=== PATIENT | female | born 1990 | race Caucasian/White ===

== ENCOUNTER 2016-07-19 20:10 | Emergency (ER) | payer OTHER ==
[~2016-07-19 20:10] MED LIST: MOTR200T44 PO; NORCOTAB PO
[2016-07-19] MEDS ORDERED: KETOROLAC 30 MG/ML VIAL (J1885) As Ordered ONE (23:03)
[2016-07-19 23:26] LABS: BASO # 0.1 K/mm3 (0.0-0.2); BASO % 0.9 % (0.0-1.0); EOS # 0.1 K/mm3 (0.0-0.50); EOS % 1.2 % (0.0-3.0); LARGE UNSTAINED CELL # 0.2 K/mm3 (0.0-0.4); LARGE UNSTAINED CELL % 1.7 % (0.0-4.0); LYMPH # 2.5 K/mm3 (1.5-6.5); LYMPH % 26.5 % (24.0-44.0); MEAN CORPUSCULAR HEMOGLOBIN 29.9 pg (27.0-33.0); MEAN CORPUSCULAR HGB CONC 34.1 g/dl (32.0-36.5); MEAN CORPUSCULAR VOLUME 87.6 fl (80.0-96.0); MONO # 0.5 K/mm3 (0.0-0.8); MONO % 5.6 % (0.0-5.0); NEUTROPHILS # 5.6 K/mm3 (1.8-7.7); NEUTROPHILS % 64.1 % (36.0-66.0); PLATELET COUNT, AUTOMATED 228 k/mm3 (150-450); RED CELL DISTRIBUTION WIDTH 12.4 % (11.5-14.5); WHITE BLOOD COUNT 8.7 K/mm3 (4.0-10.0)
[2016-07-19 23:49] LABS: CONTROL LINE HCG INT CTR LINE PRESENT
[2016-07-19 23:53] LABS: ALBUMIN 4.1 GM/DL (3.2-5.2); ALBUMIN/GLOBULIN RATIO 1.28 (1.00-1.93); ALKALINE PHOSPHATASE 48 U/L (45-117); ALT/SGPT 17 U/L (12-78); ANION GAP 8 MEQ/L (8-16); AST/SGOT 14 U/L (15-37); BILIRUBIN,DIRECT 0.3 MG/DL (0.0-0.2); BILIRUBIN,TOTAL 1.6 MG/DL (0.2-1.0); BLOOD UREA NITROGEN 23 MG/DL (7-18); CALCIUM LEVEL 8.6 MG/DL (8.5-10.1); CARBON DIOXIDE LEVEL 28 MEQ/L (21-32); CHLORIDE LEVEL 106 MEQ/L (98-107); GLOMERULAR FILTRATION RATE > 60.0 (>60); GLUCOSE, FASTING 107 MG/DL (70-105); POTASSIUM SERUM 3.6 MEQ/L (3.5-5.1); SODIUM LEVEL 142 MEQ/L (136-145); TOTAL PROTEIN 7.3 GM/DL (6.4-8.2)
--- NOTE | 2016-07-20 | REPUSA ---
Clinical history: Pain. Findings: Real-time transabdominal ultrasound images of the pelvis were obtained. An anteverted uteru s is noted, measuring 10.4 x 3.9 x 5.9 cm. The uterus demonstrates normal echotexture and echogenicit y. The endometrial stripe measures 3 mm and is within normal limits. The right ovary measures 3.8 x 2 .0 x 3.1 cm. The left ovary measures 3.0 x 1.9 x 3.1 cm. No adnexal masses are seen. Color Doppler fl ow is seen within both ovaries. There is no evidence of free fluid. Impression: Unremarkable ultrasound examination of the pelvis.
[2016-07-20 00:11] LABS: HCG, SERUM QUANTITATIVE 79 MIU/ML
--- NOTE | 2016-07-20 00:39 | EDDOCDS ---
Physician Documentation [facility] Name: Fiona Spangler Age: 26 yrs Sex: Female : 1990 Arrival Date: 07/19/2016 Time: 20:10 Bed I6 Private MD: Unknown, Family Disposition: 07/20/16 00:26 Discharged to Home/Self Care. Impression: related conditions, unspecified, Pelvic and perineal pain. - Condition is Stable. - Discharge Instructions: First Trimester of , Pelvic Pain, Female. - Medication Reconciliation, Local Pharmacy Hours form. - Follow up: Loretta Rose CNM; When: Call to arrange an appointment; Reason: Recheck today's complaints, Continuance of care. Follow up: Maximo Aguilar MD; When: Call to arrange an appointment; Reason: Recheck today's complaints, Continuance of care. - Problem is new. - Symptoms are unchanged. - Notes: HCG on 07/19/16 was 78. follow up with [facility] on tuesday for repeat Beta HCG level. return to ER sooner if any concerns arise Historical: - Allergies: no known allergies; - Home Meds: 1. none - PMHx: none; - PSHx: ; - Social history: Smoking status: Patient states was never smoker of tobacco. No barriers to communication noted, The patient speaks fluent Thai, Speaks appropriately for age. - Family history: Not pertinent. - : The pt / caregiver states he / she is not on anticoagulants. Home medication list is obtained from the patient. - Exposure Risk Screening:: None identified. [facility]: 07/19 20:16 LMP 06/07/2016, states home test negative pml Vital Signs: 20:12 BP 139 / 79; Pulse 76; Resp 18; Temp 98.7; Pulse Ox 100% ; Weight 72.57 kg / 159.99 jlm lbs; Height 5 ft. 6 in. (167.64 cm); Pain 10/10; 20:12 Body Mass Index 25.82 (72.57 kg, 167.64 cm) jlm MDM: 23:01 ketorolac 60 mg IM once ordered. mo1 23:02 -US Pelvic Non-Ob Complete Ordered. EDMS 23:02 DUPLEX SCAN LIMITED (DOPPLER)+US Ordered. EDMS 23:02 Basic Metabolic Profile Ordered. EDMS 23:02 CBC with Diff Ordered. EDMS 23:02 HCG,Serum Qualitative Ordered. EDMS 23:02 Lipase Ordered. EDMS 23:02 Liver Profile Ordered. EDMS 23:02 Urinalysis Ordered. EDMS 23:02 Urine Culture Ordered. EDMS 23:14 Financial registration complete. pm4 23:14 [facility] Payment Agreement was scanned into [employer] and attached to record. pm4 23:33 CBC with Diff Reviewed. mo1 23:52 HCG,Serum Qualitative Reviewed. mo1 23:53 Urinalysis Reviewed. mo1 23:56 Basic Metabolic Profile Reviewed. mo1 23:57 Liver Profile Reviewed. mo1 23:57 Lipase Reviewed. mo1 07/20 00:08 -US Pelvic Non-Ob Complete Reviewed. mo1 00:15 HCG, SERUM QUANTITATIVE Reviewed. mo1 00:19 Basic Metabolic Profile Reviewed. mo1 00:19 Liver Profile Reviewed. mo1 00:19 Lipase Reviewed. mo1 00:19 HCG,Serum Qualitative Reviewed. mo1 00:23 Type & Screen Ordered. EDMS Administered Medications: 07/19 23:06 Drug: ketorolac 60 mg [ketorolac 30 mg/mL (1 mL) injection solution (2 mL)] Route: IM; ms18 Site: left gluteus; 07/20 00:38 Follow up: Response: Pain is decreased cp1 Signatures: Dispatcher [employer] EDMS Heaven Julio LPN LPN cp1 Aiyana FarrisRN RN pml Tom Jansen PA PA mo1 Delfin Parks, Reg Reg pm4 Fara Spangler RN ms18 The chart was reviewed and I authenticate all verbal orders and agree with the evaluation and treatment provided.Corrections: (The following items were deleted from the chart) 07/19 23:58 23:53 HCG, SERUM QUANTITATIVE+LAB ordered. EDMS EDMS Attachments: 23:14 [facility] Payment Agreement pm4 MTDD
--- NOTE | 2016-07-20 00:39 | EDDOCDS ---
Nurse's Notes [facility] Name: Fiona Spangler Age: 26 yrs Sex: Female : 1990 Arrival Date: 07/19/2016 Time: 20:10 Bed I6 / 28 Private MD: Unknown, Family Dr Diagnosis: related conditions, unspecified;Pelvic and perineal pain Presentation: 07/19 20:15 Presenting complaint: Patient states: low back and abdominal pain - ongoing since 0900 pml this AM - no relief with advil. denies dysuria, hematuria or injury. Acute neurological deficits are not present. Mechanism of Injury: No Mechanism of Injury. Adult Sepsis Screening: The patient does not have new or worsening altered mentation. Patient's respiratory rate is less than 22. Systolic blood pressure is greater than 100. Patient has a qSOFA score of 0- Negative Sepsis Screen. Suicide/Homicide risk assessment- the patient denies having any suicidal and/or homicidal ideations and does not present with any other emotional, behavioral or mental health complaints. Status: Patient is not a guest services associate or dependent. Transition of care: patient was not received from another setting of care. 20:15 Acuity: JAMAL Level 3 pml 20:15 Method Of Arrival: Walkin/Carried/Asstd pml Triage Assessment: 20:16 General: Appears in no apparent distress, comfortable. Pain: Location: right low back pml and right lower quadrant Pain currently is 10 out of 10 on a pain scale. HIV screening NA for this visit Offered previously. Musculoskeletal: Circulation, motion, and sensation intact Capillary refill < 3 seconds. [employer] ARC: 20:16 LMP 06/07/2016, states home test negative pml Historical: - Allergies: no known allergies; - Home Meds: 1. none - PMHx: none; - PSHx: ; - Social history: Smoking status: Patient states was never smoker of tobacco. No barriers to communication noted, The patient speaks fluent Andorran, Speaks appropriately for age. - Family history: Not pertinent. - : The pt / caregiver states he / she is not on anticoagulants. Home medication list is obtained from the patient. - Exposure Risk Screening:: None identified. Screenin/17 00:36 Screening information is obtained from the patient. Fall risk: No risks identified. cp1 Assistance ADL's: requires no assistance with activities of daily living. Abuse/DV Screen: The patient / caregiver reports he/she is: not in a situation that causes fear, pain or injury. Nutritional screening: No deficits noted. Advance Directives: Currently, there is no health care proxy. There is no active DNR order. home support is adequate. Vital Signs: 07/19 20:12 BP 139 / 79; Pulse 76; Resp 18; Temp 98.7; Pulse Ox 100% ; Weight 72.57 kg; Height 5 [facility] ft. 6 in. (167.64 cm); Pain 10/10; 20:12 Body Mass Index 25.82 (72.57 kg, 167.64 cm) [facility] Vitals: 20:12 Log In Time: July 19, 2016 at 20:12. [facility] ED Course: 20:11 Patient visited by Sophy Wen, Wheat Shipper. jlm 20:11 Patient moved to Waiting jl 20:12 Unknown, Family Dr is Private Physician. jlm 20:14 Patient visited by Sophy Wen, Wheat Shipper. jlm 20:14 Patient moved to Pre RCE jlm 20:16 Triage Initiated pml 20:17 Patient visited by Aiyana Farris,JAMI. pml 22:23 Patient moved to Triage 2 pml 22:34 Tom Jansen PA is PHCP. mo1 22:34 Bright Guevara DO is Attending Physician. mo1 22:55 Patient visited by Tom Jansen PA. mo1 23:14 [facility] Payment Agreement was scanned into [employer] and attached to record. pm4 23:15 Basic Metabolic Profile Sent. ms18 23:15 CBC with Diff Sent. ms18 23:15 HCG,Serum Qualitative Sent. ms18 23:15 Lipase Sent. ms18 23:15 Liver Profile Sent. ms18 23:15 Urinalysis Sent. ms18 23:15 Urine Culture Sent. ms18 23:17 Patient moved to TR4 cz 23:25 Patient moved to Ultrasound dmg 23:42 Patient moved to TR4 dmg 07/20 00:03 -US Pelvic Non-Ob Complete Returned. EDMS 00:04 Patient visited by Heaven Julio LPN. cp1 00:04 Patient moved to I mo1 00:26 Loretta Rose CNM is Referral Physician. mo1 00:26 Maximo Aguilar MD is Referral Physician. mo1 00:35 Type & Screen Sent. cp1 00:36 The patient / caregiver is instructed regarding the plan of care and ED course. cp1 00:36 No IV's were initiated during this patient's visit. No procedures done that require cp1 assistance. Administered Medications: 07/19 23:06 Drug: ketorolac 60 mg [ketorolac 30 mg/mL (1 mL) injection solution (2 mL)] Route: IM; ms18 Site: left gluteus; 07/20 00:38 Follow up: Response: Pain is decreased cp1 Order Results: Lab Order: Basic Metabolic Profile; SPEC'M 07/19/16 23:09 Test: GLUCOSE, FASTING; Value: 107; Range: 70-105; Abnormal: Above high normal; Units: MG/DL; Status: F Test: BLOOD UREA NITROGEN; Value: 23; Range: 7-18; Abnormal: Above high normal; Units: MG/DL; Status: F Test: CREATININE FOR GFR; Value: 0.60; Range: 0.55-1.02; Units: MG/DL; Status: F Test: SODIUM LEVEL; Range: 136-145; Units: MEQ/L; Status: I Test: POTASSIUM SERUM; Range: 3.5-5.1; Units: MEQ/L; Status: I Test: CHLORIDE LEVEL; Range: 98-107; Units: MEQ/L; Status: I Test: CARBON DIOXIDE LEVEL; Range: 21-32; Units: MEQ/L; Status: I Test: ANION GAP; Range: 8-16; Units: MEQ/L; Status: I Test: CALCIUM LEVEL; Range: 8.5-10.1; Units: MG/DL; Status: I Test: GLOMERULAR FILTRATION RATE; Value: > 60.0; Range: >60; Status: F Test: SODIUM LEVEL; Value: 142; Range: 136-145; Units: MEQ/L; Status: F Test: POTASSIUM SERUM; Value: 3.6; Range: 3.5-5.1; Units: MEQ/L; Status: F Test: CHLORIDE LEVEL; Value: 106; Range: 98-107; Units: MEQ/L; Status: F Test: CARBON DIOXIDE LEVEL; Value: 28; Range: 21-32; Units: MEQ/L; Status: F Test: ANION GAP; Value: 8; Range: 8-16; Units: MEQ/L; Status: F Test: CALCIUM LEVEL; Value: 8.6; Range: 8.5-10.1; Units: MG/DL; Status: F Test Note: ; Units are mL/min/1.73 m2 Chronic Kidney Disease Staging per NKF: Stage I & II GFR >=60 Normal to Mildly Decreased Stage III GFR 30-59 Moderately Decreased Stage IV GFR 15-29 Severely Decreased Stage V GFR <15 Very Little GFR Left ESRD GFR <15 on BOOK MENDER Lab Order: CBC with Diff; SPEC'M 07/19/16 23:09 Test: WHITE BLOOD COUNT; Value: 8.7; Range: 4.0-10.0; Units: K/mm3; Status: F Test: RED BLOOD COUNT; Value: 4.38; Range: 4.00-5.40; Units: M/mm3; Status: F Test: HEMOGLOBIN; Value: 13.1; Range: 12.0-16.0; Units: g/dl; Status: F Test: HEMATOCRIT; Value: 38.4; Range: 36.0-47.0; Units: %; Status: F Test: MEAN CORPUSCULAR VOLUME; Value: 87.6; Range: 80.0-96.0; Units: fl; Status: F Test: MEAN CORPUSCULAR HEMOGLOBIN; Value: 29.9; Range: 27.0-33.0; Units: pg; Status: F Test: MEAN CORPUSCULAR HGB CONC; Value: 34.1; Range: 32.0-36.5; Units: g/dl; Status: F Test: RED CELL DISTRIBUTION WIDTH; Value: 12.4; Range: 11.5-14.5; Units: %; Status: F Test: PLATELET COUNT, AUTOMATED; Value: 228; Range: 150-450; Units: k/mm3; Status: F Test: NEUTROPHILS %; Value: 64.1; Range: 36.0-66.0; Units: %; Status: F Test: LYMPH %; Value: 26.5; Range: 24.0-44.0; Units: %; Status: F Test: MONO %; Value: 5.6; Range: 0.0-5.0; Abnormal: Above high normal; Units: %; Status: F Test: EOS %; Value: 1.2; Range: 0.0-3.0; Units: %; Status: F Test: BASO %; Value: 0.9; Range: 0.0-1.0; Units: %; Status: F Test: LARGE UNSTAINED CELL %; Value: 1.7; Range: 0.0-4.0; Units: %; Status: F Test: NEUTROPHILS #; Value: 5.6; Range: 1.8-7.7; Units: K/mm3; Status: F Test: LYMPH #; Value: 2.5; Range: 1.5-6.5; Units: K/mm3; Status: F Test: MONO #; Value: 0.5; Range: 0.0-0.8; Units: K/mm3; Status: F Test: EOS #; Value: 0.1; Range: 0.0-0.50; Units: K/mm3; Status: F Test: BASO #; Value: 0.1; Range: 0.0-0.2; Units: K/mm3; Status: F Test: LARGE UNSTAINED CELL #; Value: 0.2; Range: 0.0-0.4; Units: K/mm3; Status: F Lab Order: HCG,Serum Qualitative; [facility] 07/19/16 23:09 Test: HCG, SERUM QUALITATIVE; Value: POSITIVE; Range: NEGATIVE; Abnormal: Abnormal; Status: F Lab Order: Lipase; [facility] 07/19/16 23:09 Test: LIPASE; Value: 86; Range: 73-393; Units: U/L; Status: F Lab Order: Liver Profile; [facility] 07/19/16 23:09 Test: AST/SGOT; Value: 14; Range: 15-37; Abnormal: Below low normal; Units: U/L; Status: F Test: ALT/SGPT; Value: 17; Range: 12-78; Units: U/L; Status: F Test: ALKALINE PHOSPHATASE; Value: 48; Range: 45-117; Units: U/L; Status: F Test: BILIRUBIN,TOTAL; Value: 1.6; Range: 0.2-1.0; Abnormal: Above high normal; Units: MG/DL; Status: F Test: BILIRUBIN,DIRECT; Value: 0.3; Range: 0.0-0.2; Abnormal: Above high normal; Units: MG/DL; Status: F Test: TOTAL PROTEIN; Value: 7.3; Range: 6.4-8.2; Units: GM/DL; Status: F Test: ALBUMIN; Value: 4.1; Range: 3.2-5.2; Units: GM/DL; Status: F Test: ALBUMIN/GLOBULIN RATIO; Value: 1.28; Range: 1.00-1.93; Status: F Lab Order: Urinalysis; SPEC'M 07/19/16 23:09 Test: APPEARANCE, URINE; Value: HAZY; Range: CLEAR; Status: F Test: COLOR, URINE; Value: YELLOW; Range: YELLOW; Status: F Test: PH,URINE; Value: 5.0; Range: 5.0-9.0; Units: UNITS; Status: F Test: SPECIFIC GRAVITY URINE AUTO; Value: 1.035; Range: 1.002-1.035; Status: F Test: PROTEIN, URINE AUTO; Value: 1+; Range: NEGATIVE; Abnormal: Above high normal; Units: mg/dL; Status: F Test: GLUCOSE, URINE (UA) AUTO; Value: NEGATIVE; Range: NEGATIVE; Units: mg/dL; Status: F Test: KETONE, URINE AUTO; Value: TRACE; Range: NEGATIVE; Abnormal: Above high normal; Units: mg/dL; Status: F Test: UROBILINOGEN, URINE AUTO; Value: 0.2; Range: 0.0-2.0; Units: mg/dL; Status: F Test: BILIRUBIN, URINE AUTO; Value: NEGATIVE; Range: NEGATIVE; Status: F Test: NITRITE, URINE AUTO; Value: NEGATIVE; Range: NEGATIVE; Status: F Test: LEUKOCYTE ESTERASE, URINE AUTO; Value: NEGATIVE; Range: NEGATIVE; Status: F Test: BLOOD, URINE BLOOD; Value: NEGATIVE; Range: NEGATIVE; Status: F Test: WBC, URINE AUTO; Value: 1; Range: 0-3; Units: /HPF; Status: F Test: RBC, URINE AUTO; Value: 5; Range: 0-3; Abnormal: Above high normal; Units: /HPF; Status: F Test: BACTERIA, URINE AUTO; Value: NEGATIVE; Range: NEGATIVE; Status: F Test: SQUAMOUS EPITHELIAL CELL UR AU; Value: 4; Range: 0-6; Units: /HPF; Status: F Test: MUCUS, URINE; Value: LARGE; Range: NEGATIVE; Status: F Test: HYALINE CAST, URINE AUTO; Value: 0; Range: 0-1; Units: /LPF; Status: F Lab Order: HCG, SERUM QUANTITATIVE; SPEC'M 07/19/16 23:09 Test: HCG, SERUM QUANTITATIVE; Value: 79; Units: MIU/ML; Status: F Test Note: ; GESTATIONAL AGE APPROXIMATE HCG RANGE (MIU/ML) 0.2-1 WEEK 5-50 1-2 WEEKS 50-500 2-3 WEEKS 100-5,000 3-4 WEEKS 500-10,000 4-5 WEEKS 1,000-50,000 5-6 WEEKS 10,000-100,000 6-8 WEEKS 15,000-200,000 2-3 MONTHS 10,000-100,000 NON FEMALES LESS THAN 3.0 Patient samples may contain human heterophilic antibodies that could react with immunoassays to give falsely elevated or depressed results. This assay has been designed to minimize interference from heterophilic antibodies. Elevated hCG levels have also been associated with trophoblastic disease and nontrophoblastic neoplasms. The possibility of having these diseases should be considered before a diagnosis of is made. This test is not intended for use as a surrogate marker for aiding in the diagnosis or monitoring the treatment of cancer patients. [employer] methodology. Radiology Order: -US Pelvic Non-Ob Complete Test: -US Pelvic Non-Ob Complete REASON FOR EXAMINATION: Adnexal Pain r/o Torsion; ; Clinical history: Pain.; Findings: Real-time transabdominal ultrasound images of the pelvis were obtained. An anteverted uteru; s is noted, measuring 10.4 x 3.9 x 5.9 cm. The uterus demonstrates normal echotexture and echogenicit; y. The endometrial stripe measures 3 mm and is within normal limits. The right ovary measures 3.8 x 2; .0 x 3.1 cm. The left ovary measures 3.0 x 1.9 x 3.1 cm. No adnexal masses are seen. Color Doppler fl; ow is seen within both ovaries. There is no evidence of free fluid.; Impression: Unremarkable ultrasound examination of the pelvis.; ; Outcome: 00:26 Discharge ordered by Provider. mo1 00:36 Discharge Assessment: Patient awake, alert and oriented x 3. No cognitive and/or cp1 functional deficits noted. Patient verbalized understanding of disposition instructions. patient administered narcotics - no. The following High Risk Discharge criteria are identified: None. Discharged to home ambulatory. Condition: good Condition: stable. Discharge instructions given to patient, Instructed on discharge instructions, follow up and referral plans. medication usage, Demonstrated understanding of instructions, Pt was receptive of discharge instructions/ teaching. Ultrasound Study completed. Property sent home with patient. :Personal belongings accompany Pt. 00:38 Patient left the ED. cp1 Signatures: Dispatcher [employer] EDMS Paulo Rosas, Belen Lopez RN, Cheryl, LPN LPN cp1 Aiyana Farris RN RN pml O'Hagan, Michael, PA PA mo1 Sophy Wen, Wheat Shipper Unit Fara Simms RN RN ms18 Delfin Parks, Reg Reg pm4 MTDD
--- NOTE | 2016-07-22 01:39 | EDDOCDS ---
Physician Documentation [facility] Name: Fiona Spangler Age: 26 yrs Sex: Female : 1990 Arrival Date: 07/19/2016 Time: 20:10 Bed I6 Private MD: Unknown, Family Disposition: 07/20/16 00:26 Discharged to Home/Self Care. Impression: related conditions, unspecified, Pelvic and perineal pain. - Condition is Stable. - Discharge Instructions: First Trimester of , Pelvic Pain, Female. - Medication Reconciliation, Local Pharmacy Hours form. - Follow up: Loertta Rose CNM; When: Call to arrange an appointment; Reason: Recheck today's complaints, Continuance of care. Follow up: Maximo Aguilar MD; When: Call to arrange an appointment; Reason: Recheck today's complaints, Continuance of care. - Problem is new. - Symptoms are unchanged. - Notes: HCG on 07/19/16 was 78. follow up with REGISTERED HEALTH NURSE on tuesday for repeat Beta HCG level. return to ER sooner if any concerns arise Historical: - Allergies: no known allergies; - Home Meds: 1. none - PMHx: none; - PSHx: ; - Social history: Smoking status: Patient states was never smoker of tobacco. No barriers to communication noted, The patient speaks fluent Tajik, Speaks appropriately for age. - Family history: Not pertinent. - : The pt / caregiver states he / she is not on anticoagulants. Home medication list is obtained from the patient. - Exposure Risk Screening:: None identified. REGISTERED HEALTH NURSE: 07/19 20:16 LMP 06/07/2016, states home test negative pml Vital Signs: 20:12 BP 139 / 79; Pulse 76; Resp 18; Temp 98.7; Pulse Ox 100% ; Weight 72.57 kg / 159.99 jlm lbs; Height 5 ft. 6 in. (167.64 cm); Pain 10/10; 20:12 Body Mass Index 25.82 (72.57 kg, 167.64 cm) jlm MDM: 23:01 ketorolac 60 mg IM once ordered. mo1 23:02 -US Pelvic Non-Ob Complete Ordered. EDMS 23:02 DUPLEX SCAN LIMITED (DOPPLER)+US Ordered. EDMS 23:02 Basic Metabolic Profile Ordered. EDMS 23:02 CBC with Diff Ordered. EDMS 23:02 HCG,Serum Qualitative Ordered. EDMS 23:02 Lipase Ordered. EDMS 23:02 Liver Profile Ordered. EDMS 23:02 Urinalysis Ordered. EDMS 23:02 Urine Culture Ordered. EDMS 23:14 Financial registration complete. pm4 23:14 [facility] Payment Agreement was scanned into [employer] and attached to record. pm4 23:33 CBC with Diff Reviewed. mo1 23:52 HCG,Serum Qualitative Reviewed. mo1 23:53 Urinalysis Reviewed. mo1 23:56 Basic Metabolic Profile Reviewed. mo1 23:57 Liver Profile Reviewed. mo1 23:57 Lipase Reviewed. mo1 07/20 00:08 -US Pelvic Non-Ob Complete Reviewed. mo1 00:15 HCG, SERUM QUANTITATIVE Reviewed. mo1 00:19 Basic Metabolic Profile Reviewed. mo1 00:19 Liver Profile Reviewed. mo1 00:19 Lipase Reviewed. mo1 00:19 HCG,Serum Qualitative Reviewed. mo1 00:23 Type & Screen Ordered. EDMS 11:07 T-Sheet-- Draft Copy was scanned into [employer] and attached to record. gb 11:07 Radiology Report was scanned into [employer] and attached to record. gb Administered Medications: 07/19 23:06 Drug: ketorolac 60 mg [ketorolac 30 mg/mL (1 mL) injection solution (2 mL)] Route: IM; ms18 Site: left gluteus; 07/20 00:38 Follow up: Response: Pain is decreased cp1 Signatures: Dispatcher [employer] EDMS Divine Tse, Reg Reg gb Heaven Julio,TELLER HEAD TELLER HEAD cp1 Aiyana Farris,RN RN pml Tom Jansen PA PA mo1 Delfin Parks, Reg Reg pm4 Fara Spangler RN ms18 The chart was reviewed and I authenticate all verbal orders and agree with the evaluation and treatment provided.Corrections: (The following items were deleted from the chart) 07/19 23:58 23:53 HCG, SERUM QUANTITATIVE+LAB ordered. EDMS EDMS Attachments: 23:14 [facility] Payment Agreement pm4 07/20 11:07 T-Sheet-- Draft Copy gb Chart Complete MTDD
--- NOTE | 2016-07-22 01:39 | EDDOCDS ---
Nurse's Notes [facility] Name: Fiona Spangler Age: 26 yrs Sex: Female : 1990 Arrival Date: 07/19/2016 Time: 20:10 Bed I6 / 28 Private MD: Unknown, Family Dr Diagnosis: related conditions, unspecified;Pelvic and perineal pain Presentation: 07/19 20:15 Presenting complaint: Patient states: low back and abdominal pain - ongoing since 0900 pml this AM - no relief with advil. denies dysuria, hematuria or injury. Acute neurological deficits are not present. Mechanism of Injury: No Mechanism of Injury. Adult Sepsis Screening: The patient does not have new or worsening altered mentation. Patient's respiratory rate is less than 22. Systolic blood pressure is greater than 100. Patient has a qSOFA score of 0- Negative Sepsis Screen. Suicide/Homicide risk assessment- the patient denies having any suicidal and/or homicidal ideations and does not present with any other emotional, behavioral or mental health complaints. Status: Patient is not a agricultural service worker or dependent. Transition of care: patient was not received from another setting of care. 20:15 Acuity: JAMAL Level 3 pml 20:15 Method Of Arrival: Walkin/Carried/Asstd pml Triage Assessment: 20:16 General: Appears in no apparent distress, comfortable. Pain: Location: right low back pml and right lower quadrant Pain currently is 10 out of 10 on a pain scale. HIV screening NA for this visit Offered previously. Musculoskeletal: Circulation, motion, and sensation intact Capillary refill < 3 seconds. PATTERN MAKER: 20:16 LMP 06/07/2016, states home test negative pml Historical: - Allergies: no known allergies; - Home Meds: 1. none - PMHx: none; - PSHx: ; - Social history: Smoking status: Patient states was never smoker of tobacco. No barriers to communication noted, The patient speaks fluent Iraqi, Speaks appropriately for age. - Family history: Not pertinent. - : The pt / caregiver states he / she is not on anticoagulants. Home medication list is obtained from the patient. - Exposure Risk Screening:: None identified. Screenin/17 00:36 Screening information is obtained from the patient. Fall risk: No risks identified. cp1 Assistance ADL's: requires no assistance with activities of daily living. Abuse/DV Screen: The patient / caregiver reports he/she is: not in a situation that causes fear, pain or injury. Nutritional screening: No deficits noted. Advance Directives: Currently, there is no health care proxy. There is no active DNR order. home support is adequate. Vital Signs: 07/19 20:12 BP 139 / 79; Pulse 76; Resp 18; Temp 98.7; Pulse Ox 100% ; Weight 72.57 kg; Height 5 [facility] ft. 6 in. (167.64 cm); Pain 10/10; 20:12 Body Mass Index 25.82 (72.57 kg, 167.64 cm) [facility] Vitals: 20:12 Log In Time: July 19, 2016 at 20:12. [facility] ED Course: 20:11 Patient visited by Sophy Wen, Clinical Trials Specialist. jlm 20:11 Patient moved to Waiting jl 20:12 Unknown, Family Dr is Private Physician. jlm 20:14 Patient visited by Sophy Wen, Clinical Trials Specialist. jlm 20:14 Patient moved to Pre RCE jlm 20:16 Triage Initiated pml 20:17 Patient visited by Aiyana Farris,JAMI. pml 22:23 Patient moved to Triage 2 pml 22:34 Tom Jansen PA is PHCP. mo1 22:34 Bright Guevara DO is Attending Physician. mo1 22:55 Patient visited by Tom Jansen PA. mo1 23:14 [facility] Payment Agreement was scanned into [employer] and attached to record. pm4 23:15 Basic Metabolic Profile Sent. ms18 23:15 CBC with Diff Sent. ms18 23:15 HCG,Serum Qualitative Sent. ms18 23:15 Lipase Sent. ms18 23:15 Liver Profile Sent. ms18 23:15 Urinalysis Sent. ms18 23:15 Urine Culture Sent. ms18 23:17 Patient moved to TR4 cz 23:25 Patient moved to Ultrasound dmg 23:42 Patient moved to TR4 dmg 07/20 00:03 -US Pelvic Non-Ob Complete Returned. EDMS 00:04 Patient visited by Heaven Julio LPN. cp1 00:04 Patient moved to I mo1 00:26 Loretta Rose CNM is Referral Physician. mo1 00:26 Maximo Aguilar MD is Referral Physician. mo1 00:35 Type & Screen Sent. cp1 00:36 The patient / caregiver is instructed regarding the plan of care and ED course. cp1 00:36 No IV's were initiated during this patient's visit. No procedures done that require cp1 assistance. 11:07 T-Sheet-- Draft Copy was scanned into [employer] and attached to record. gb 11:07 Radiology Report was scanned into [employer] and attached to record. gb Administered Medications: 07/19 23:06 Drug: ketorolac 60 mg [ketorolac 30 mg/mL (1 mL) injection solution (2 mL)] Route: IM; ms18 Site: left gluteus; 07/20 00:38 Follow up: Response: Pain is decreased cp1 Order Results: Lab Order: Basic Metabolic Profile; SPEC'M 07/19/16 23:09 Test: GLUCOSE, FASTING; Value: 107; Range: 70-105; Abnormal: Above high normal; Units: MG/DL; Status: F Test: BLOOD UREA NITROGEN; Value: 23; Range: 7-18; Abnormal: Above high normal; Units: MG/DL; Status: F Test: CREATININE FOR GFR; Value: 0.60; Range: 0.55-1.02; Units: MG/DL; Status: F Test: SODIUM LEVEL; Range: 136-145; Units: MEQ/L; Status: I Test: POTASSIUM SERUM; Range: 3.5-5.1; Units: MEQ/L; Status: I Test: CHLORIDE LEVEL; Range: 98-107; Units: MEQ/L; Status: I Test: CARBON DIOXIDE LEVEL; Range: 21-32; Units: MEQ/L; Status: I Test: ANION GAP; Range: 8-16; Units: MEQ/L; Status: I Test: CALCIUM LEVEL; Range: 8.5-10.1; Units: MG/DL; Status: I Test: GLOMERULAR FILTRATION RATE; Value: > 60.0; Range: >60; Status: F Test: SODIUM LEVEL; Value: 142; Range: 136-145; Units: MEQ/L; Status: F Test: POTASSIUM SERUM; Value: 3.6; Range: 3.5-5.1; Units: MEQ/L; Status: F Test: CHLORIDE LEVEL; Value: 106; Range: 98-107; Units: MEQ/L; Status: F Test: CARBON DIOXIDE LEVEL; Value: 28; Range: 21-32; Units: MEQ/L; Status: F Test: ANION GAP; Value: 8; Range: 8-16; Units: MEQ/L; Status: F Test: CALCIUM LEVEL; Value: 8.6; Range: 8.5-10.1; Units: MG/DL; Status: F Test Note: ; Units are mL/min/1.73 m2 Chronic Kidney Disease Staging per NKF: Stage I & II GFR >=60 Normal to Mildly Decreased Stage III GFR 30-59 Moderately Decreased Stage IV GFR 15-29 Severely Decreased Stage V GFR <15 Very Little GFR Left ESRD GFR <15 on SWAGE TENDER Lab Order: CBC with Diff; SPEC'M 07/19/16 23:09 Test: WHITE BLOOD COUNT; Value: 8.7; Range: 4.0-10.0; Units: K/mm3; Status: F Test: RED BLOOD COUNT; Value: 4.38; Range: 4.00-5.40; Units: M/mm3; Status: F Test: HEMOGLOBIN; Value: 13.1; Range: 12.0-16.0; Units: g/dl; Status: F Test: HEMATOCRIT; Value: 38.4; Range: 36.0-47.0; Units: %; Status: F Test: MEAN CORPUSCULAR VOLUME; Value: 87.6; Range: 80.0-96.0; Units: fl; Status: F Test: MEAN CORPUSCULAR HEMOGLOBIN; Value: 29.9; Range: 27.0-33.0; Units: pg; Status: F Test: MEAN CORPUSCULAR HGB CONC; Value: 34.1; Range: 32.0-36.5; Units: g/dl; Status: F Test: RED CELL DISTRIBUTION WIDTH; Value: 12.4; Range: 11.5-14.5; Units: %; Status: F Test: PLATELET COUNT, AUTOMATED; Value: 228; Range: 150-450; Units: k/mm3; Status: F Test: NEUTROPHILS %; Value: 64.1; Range: 36.0-66.0; Units: %; Status: F Test: LYMPH %; Value: 26.5; Range: 24.0-44.0; Units: %; Status: F Test: MONO %; Value: 5.6; Range: 0.0-5.0; Abnormal: Above high normal; Units: %; Status: F Test: EOS %; Value: 1.2; Range: 0.0-3.0; Units: %; Status: F Test: BASO %; Value: 0.9; Range: 0.0-1.0; Units: %; Status: F Test: LARGE UNSTAINED CELL %; Value: 1.7; Range: 0.0-4.0; Units: %; Status: F Test: NEUTROPHILS #; Value: 5.6; Range: 1.8-7.7; Units: K/mm3; Status: F Test: LYMPH #; Value: 2.5; Range: 1.5-6.5; Units: K/mm3; Status: F Test: MONO #; Value: 0.5; Range: 0.0-0.8; Units: K/mm3; Status: F Test: EOS #; Value: 0.1; Range: 0.0-0.50; Units: K/mm3; Status: F Test: BASO #; Value: 0.1; Range: 0.0-0.2; Units: K/mm3; Status: F Test: LARGE UNSTAINED CELL #; Value: 0.2; Range: 0.0-0.4; Units: K/mm3; Status: F Lab Order: HCG,Serum Qualitative; SPEC' 07/19/16 23:09 Test: HCG, SERUM QUALITATIVE; Value: POSITIVE; Range: NEGATIVE; Abnormal: Abnormal; Status: F Lab Order: Lipase; SPEC'M 07/19/16 23:09 Test: LIPASE; Value: 86; Range: 73-393; Units: U/L; Status: F Lab Order: Liver Profile; SPEC' 07/19/16 23:09 Test: AST/SGOT; Value: 14; Range: 15-37; Abnormal: Below low normal; Units: U/L; Status: F Test: ALT/SGPT; Value: 17; Range: 12-78; Units: U/L; Status: F Test: ALKALINE PHOSPHATASE; Value: 48; Range: 45-117; Units: U/L; Status: F Test: BILIRUBIN,TOTAL; Value: 1.6; Range: 0.2-1.0; Abnormal: Above high normal; Units: MG/DL; Status: F Test: BILIRUBIN,DIRECT; Value: 0.3; Range: 0.0-0.2; Abnormal: Above high normal; Units: MG/DL; Status: F Test: TOTAL PROTEIN; Value: 7.3; Range: 6.4-8.2; Units: GM/DL; Status: F Test: ALBUMIN; Value: 4.1; Range: 3.2-5.2; Units: GM/DL; Status: F Test: ALBUMIN/GLOBULIN RATIO; Value: 1.28; Range: 1.00-1.93; Status: F Lab Order: Urinalysis; SPEC'M 07/19/16 23:09 Test: APPEARANCE, URINE; Value: HAZY; Range: CLEAR; Status: F Test: COLOR, URINE; Value: YELLOW; Range: YELLOW; Status: F Test: PH,URINE; Value: 5.0; Range: 5.0-9.0; Units: UNITS; Status: F Test: SPECIFIC GRAVITY URINE AUTO; Value: 1.035; Range: 1.002-1.035; Status: F Test: PROTEIN, URINE AUTO; Value: 1+; Range: NEGATIVE; Abnormal: Above high normal; Units: mg/dL; Status: F Test: GLUCOSE, URINE (UA) AUTO; Value: NEGATIVE; Range: NEGATIVE; Units: mg/dL; Status: F Test: KETONE, URINE AUTO; Value: TRACE; Range: NEGATIVE; Abnormal: Above high normal; Units: mg/dL; Status: F Test: UROBILINOGEN, URINE AUTO; Value: 0.2; Range: 0.0-2.0; Units: mg/dL; Status: F Test: BILIRUBIN, URINE AUTO; Value: NEGATIVE; Range: NEGATIVE; Status: F Test: NITRITE, URINE AUTO; Value: NEGATIVE; Range: NEGATIVE; Status: F Test: LEUKOCYTE ESTERASE, URINE AUTO; Value: NEGATIVE; Range: NEGATIVE; Status: F Test: BLOOD, URINE BLOOD; Value: NEGATIVE; Range: NEGATIVE; Status: F Test: WBC, URINE AUTO; Value: 1; Range: 0-3; Units: /HPF; Status: F Test: RBC, URINE AUTO; Value: 5; Range: 0-3; Abnormal: Above high normal; Units: /HPF; Status: F Test: BACTERIA, URINE AUTO; Value: NEGATIVE; Range: NEGATIVE; Status: F Test: SQUAMOUS EPITHELIAL CELL UR AU; Value: 4; Range: 0-6; Units: /HPF; Status: F Test: MUCUS, URINE; Value: LARGE; Range: NEGATIVE; Status: F Test: HYALINE CAST, URINE AUTO; Value: 0; Range: 0-1; Units: /LPF; Status: F Lab Order: Urine Culture; SPEC'07/19/16 23:09 Test: URINE CULTURE; Value: URINE CULTURE RESULT SPECIMEN APPEARS CONTAMINATED; Status: F Lab Order: HCG, SERUM QUANTITATIVE; 07/19/16 23:09 Test: HCG, SERUM QUANTITATIVE; Value: 79; Units: MIU/ML; Status: F Test Note: ; GESTATIONAL AGE APPROXIMATE HCG RANGE (MIU/ML) 0.2-1 WEEK 5-50 1-2 WEEKS 50-500 2-3 WEEKS 100-5,000 3-4 WEEKS 500-10,000 4-5 WEEKS 1,000-50,000 5-6 WEEKS 10,000-100,000 6-8 WEEKS 15,000-200,000 2-3 MONTHS 10,000-100,000 NON FEMALES LESS THAN 3.0 Patient samples may contain human heterophilic antibodies that could react with immunoassays to give falsely elevated or depressed results. This assay has been designed to minimize interference from heterophilic antibodies. Elevated hCG levels have also been associated with trophoblastic disease and nontrophoblastic neoplasms. The possibility of having these diseases should be considered before a diagnosis of is made. This test is not intended for use as a surrogate marker for aiding in the diagnosis or monitoring the treatment of cancer patients. [employer] methodology. Lab Order: Type & Screen; SPEC07/20/16 00:26 Test: BLOOD TYPE; Value: O NEG; Status: F Test: AB SCREEN (INDIRECT DEREK)GEL; Value: NEGATIVE; Status: F Radiology Order: -US Pelvic Non-Ob Complete Test: -US Pelvic Non-Ob Complete REASON FOR EXAMINATION: Adnexal Pain r/o Torsion; ; Clinical history: Pain.; Findings: Real-time transabdominal ultrasound images of the pelvis were obtained. An anteverted uteru; s is noted, measuring 10.4 x 3.9 x 5.9 cm. The uterus demonstrates normal echotexture and echogenicit; y. The endometrial stripe measures 3 mm and is within normal limits. The right ovary measures 3.8 x 2; .0 x 3.1 cm. The left ovary measures 3.0 x 1.9 x 3.1 cm. No adnexal masses are seen. Color Doppler fl; ow is seen within both ovaries. There is no evidence of free fluid.; Impression: Unremarkable ultrasound examination of the pelvis.; ; Outcome: 00:26 Discharge ordered by Provider. mo1 00:36 Discharge Assessment: Patient awake, alert and oriented x 3. No cognitive and/or cp1 functional deficits noted. Patient verbalized understanding of disposition instructions. patient administered narcotics - no. The following High Risk Discharge criteria are identified: None. Discharged to home ambulatory. Condition: good Condition: stable. Discharge instructions given to patient, Instructed on discharge instructions, follow up and referral plans. medication usage, Demonstrated understanding of instructions, Pt was receptive of discharge instructions/ teaching. Ultrasound Study completed. Property sent home with patient. :Personal belongings accompany Pt. 00:38 Patient left the ED. cp1 Signatures: Dispatcher [employer] EDMS Paulo Rosas RN RN cz Gunn, Deanne Divine Moss, Reg Reg gb Heaven Julio,SPEECH PATHOLOGY ASSISTANT SPEECH PATHOLOGY ASSISTANT cp1 Aiyana Farris RN RN pml O'Hagan, Michael, PA PA mo1 Sophy Wen, Clinical Trials Specialist Unit Fara Simms RN RN ms18 Delfin Parks, Reg Reg pm4 Chart Complete MTDD
--- NOTE | 2016-07-22 01:39 | EDDOCDS ---
Physician Documentation [facility] Name: Fiona Spangler Age: 26 yrs Sex: Female : 1990 Arrival Date: 07/19/2016 Time: 20:10 Bed I6 Private MD: Unknown, Family Disposition: 07/20/16 00:26 Discharged to Home/Self Care. Impression: related conditions, unspecified, Pelvic and perineal pain. - Condition is Stable. - Discharge Instructions: First Trimester of , Pelvic Pain, Female. - Medication Reconciliation, Local Pharmacy Hours form. - Follow up: Loretta Rose CNM; When: Call to arrange an appointment; Reason: Recheck today's complaints, Continuance of care. Follow up: Maximo Aguilar MD; When: Call to arrange an appointment; Reason: Recheck today's complaints, Continuance of care. - Problem is new. - Symptoms are unchanged. - Notes: HCG on 07/19/16 was 78. follow up with KEYMODULE ASSEMBLY SUPERVISOR on tuesday for repeat Beta HCG level. return to ER sooner if any concerns arise Historical: - Allergies: no known allergies; - Home Meds: 1. none - PMHx: none; - PSHx: ; - Social history: Smoking status: Patient states was never smoker of tobacco. No barriers to communication noted, The patient speaks fluent Divehi, Speaks appropriately for age. - Family history: Not pertinent. - : The pt / caregiver states he / she is not on anticoagulants. Home medication list is obtained from the patient. - Exposure Risk Screening:: None identified. KEYMODULE ASSEMBLY SUPERVISOR: 07/19 20:16 LMP 06/07/2016, states home test negative pml Vital Signs: 20:12 BP 139 / 79; Pulse 76; Resp 18; Temp 98.7; Pulse Ox 100% ; Weight 72.57 kg / 159.99 jlm lbs; Height 5 ft. 6 in. (167.64 cm); Pain 10/10; 20:12 Body Mass Index 25.82 (72.57 kg, 167.64 cm) jlm MDM: 23:01 ketorolac 60 mg IM once ordered. mo1 23:02 -US Pelvic Non-Ob Complete Ordered. EDMS 23:02 DUPLEX SCAN LIMITED (DOPPLER)+US Ordered. EDMS 23:02 Basic Metabolic Profile Ordered. EDMS 23:02 CBC with Diff Ordered. EDMS 23:02 HCG,Serum Qualitative Ordered. EDMS 23:02 Lipase Ordered. EDMS 23:02 Liver Profile Ordered. EDMS 23:02 Urinalysis Ordered. EDMS 23:02 Urine Culture Ordered. EDMS 23:14 Financial registration complete. pm4 23:14 [facility] Payment Agreement was scanned into [employer] and attached to record. pm4 23:33 CBC with Diff Reviewed. mo1 23:52 HCG,Serum Qualitative Reviewed. mo1 23:53 Urinalysis Reviewed. mo1 23:56 Basic Metabolic Profile Reviewed. mo1 23:57 Liver Profile Reviewed. mo1 23:57 Lipase Reviewed. mo1 07/20 00:08 -US Pelvic Non-Ob Complete Reviewed. mo1 00:15 HCG, SERUM QUANTITATIVE Reviewed. mo1 00:19 Basic Metabolic Profile Reviewed. mo1 00:19 Liver Profile Reviewed. mo1 00:19 Lipase Reviewed. mo1 00:19 HCG,Serum Qualitative Reviewed. mo1 00:23 Type & Screen Ordered. EDMS 11:07 T-Sheet-- Draft Copy was scanned into [employer] and attached to record. gb 11:07 Radiology Report was scanned into [employer] and attached to record. gb Administered Medications: 07/19 23:06 Drug: ketorolac 60 mg [ketorolac 30 mg/mL (1 mL) injection solution (2 mL)] Route: IM; ms18 Site: left gluteus; 07/20 00:38 Follow up: Response: Pain is decreased cp1 Signatures: Dispatcher [employer] EDMS Divine Tse, Reg Reg gb Heaven Julio,QUALITY MANAGEMENT NURSE QUALITY MANAGEMENT NURSE cp1 Aiyana Farris,RN RN pml Tom Jansen PA PA mo1 Delfin Parks, Reg Reg pm4 Fara Spangler RN ms18 The chart was reviewed and I authenticate all verbal orders and agree with the evaluation and treatment provided.Corrections: (The following items were deleted from the chart) 07/19 23:58 23:53 HCG, SERUM QUANTITATIVE+LAB ordered. EDMS EDMS Attachments: 23:14 [facility] Payment Agreement pm4 07/20 11:07 T-Sheet-- Draft Copy gb Chart Complete MTDD
== END 2016-07-20 00:38 | disposition home or self-care (01) ==
LOC: M ED 20:10
DX: R10.2 Pelvic and perineal pain (principal); Z32.01 Encounter for pregnancy test, result positive
CPT/HCPCS: 36415; 76856; 80048; 80076; 81001; 83690; 84702; 84703; 85025; 86850; 86900; 86901; 87086; 93976; 96372; 99284; J1885

== ENCOUNTER 2016-07-20 11:27 | Emergency (ER) | payer OTHER ==
--- NOTE | 2016-07-20 14:47 | EDDOCDS ---
Nurse's Notes [facility] Name: Fiona Spangler Age: 26 yrs Sex: Female : 1990 Arrival Date: 07/20/2016 Time: 11:27 Bed I1 / M1 Private MD: Unknown, Family Dr Diagnosis: Threatened Presentation: 07/20 11:41 Presenting complaint: Patient states: seen here last night for lower bad pain. found srm out she was . started vaginal bleeding at 1045. has to wear a pad. positive cramping. Risk factors: The patient reports no loss of conciousness prior to arrival. This patient has not had a hysterectomy. This patient has not begun menopause. Adult Sepsis Screening: The patient does not have new or worsening altered mentation. Patient's respiratory rate is less than 22. Systolic blood pressure is greater than 100. Patient has a qSOFA score of 0- Negative Sepsis Screen. Suicide/Homicide risk assessment- the patient denies having any suicidal and/or homicidal ideations and does not present with any other emotional, behavioral or mental health complaints. Status: Patient is not a family dinner service specialist or dependent. Transition of care: patient was not received from another setting of care. 11:41 Acuity: JAMAL Level 3 srm 11:41 Method Of Arrival: Walkin/Carried/Asstd [facility] Triage Assessment: 11:43 General: Appears in no apparent distress, Behavior is appropriate for age, cooperative. srm Pain: Pain currently is 2 out of 10 on a pain scale. At worst was 4 out of 10 on a pain scale. HIV screening NA for this visit Offered previously. : Reports vaginal bleeding that is moderate flow. 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 none - PMHx: none; - PSHx: ; - Social history: Smoking status: Patient states was never smoker of tobacco. No barriers to communication noted, The patient speaks fluent Russian, Speaks appropriately for age. - Family history: Not pertinent. - : The pt / caregiver states he / she is not on anticoagulants. Home medication list is obtained from the patient. - Exposure Risk Screening:: None identified. Screenin:43 Screening information is obtained from the patient. Fall risk: No risks identified. dsf Assistance ADL's: requires no assistance with activities of daily living. Abuse/DV Screen: The patient / caregiver reports he/she is: not in a situation that causes fear, pain or injury. Nutritional screening: No deficits noted. Advance Directives: Currently, there is no health care proxy. home support is adequate. Assessment: 14:30 General: Appears in no apparent distress, Behavior is appropriate for age, cooperative. dsf Neurological: Level of Consciousness is awake, alert. Cardiovascular: No deficits noted. Respiratory: No deficits noted. GI: No deficits noted. Derm: Skin is pink, warm & dry. 14:43 General: Appears in no apparent distress, comfortable, Behavior is appropriate for age, dsf cooperative. Pain: Denies pain. Neurological: Level of Consciousness is awake, alert. Cardiovascular: Capillary refill < 3 seconds. Respiratory: Airway is patent Respiratory effort is even, unlabored, Respiratory pattern is regular, symmetrical. : Reports no bleeding at this time. Derm: Skin is pink, warm & dry. Vital Signs: 11:29 BP 155 / 84; Pulse 82; Resp 18; Temp 97.9(O); Pulse Ox 100% on R/A; Weight 72.57 kg ct3 (R); Height 5 ft. 6 in. (167.64 cm) (R); Pain 4/10; 14:43 BP 122 / 65; Pulse 88; Resp 16; Temp 98.4(O); Pulse Ox 100% on R/A; Pain 0/10; dsf 11:29 Body Mass Index 25.82 (72.57 kg, 167.64 cm) ct3 Vitals: 11:29 Log In Time: July 20, 2016 at 11:27. ct3 ED Course: 11:28 Patient visited by Mitra Mancini PCA. ct3 11:28 Patient moved to Waiting ct3 11:29 Unknown, Family Dr is Private Physician. ct3 11:30 Patient moved to Pre RCE ct3 11:42 Triage Initiated srm 12:46 Patient moved to Triage 2 srm 12:50 [facility] ar2 12:50 Sai Haynes MD is Attending Physician. ar2 13:00 Patient visited by Robertshaw, Omar, PA-C. ar2 13:35 Patient moved to I1 / M1 mdr 13:46 Assist provider with pelvic exam: Set up pelvic tray. Performed by Omar grimm PA-C. 14:08 Draw Rhogam Sent. jam1 14:30 Patient visited by Claly Luong RN. dsf 14:39 Loretta Rose CNM is Referral Physician. ar2 14:43 The patient / caregiver is instructed regarding the plan of care and ED course. dsf 14:43 No IV's were initiated during this patient's visit. dsf Administered Medications: 14:29 Drug: -RhoGAM Ultra-Filtered Plus 300 mcg [RhoGAM Ultra-Filtered PLUS 1,500 unit (300 dsf mcg) intramuscular syringe (300 mcg)] Route: IM; Site: left deltoid; Order Results: There are currently no results for this order. Outcome: 14:41 Discharge ordered by Provider. ar2 14:43 No special radiology studies were completed. Property sent home with patient. dsf 14:44 Discharge Assessment: Patient awake, alert and oriented x 3. No cognitive and/or dsf functional deficits noted. Patient verbalized understanding of disposition instructions. patient administered narcotics - no. 14:46 The following High Risk Discharge criteria are identified: None. Discharged to home dsf ambulatory. Condition: stable. Discharge instructions given to patient, Instructed on discharge instructions, follow up and referral plans. pelvic rest Demonstrated understanding of instructions, Pt was receptive of discharge instructions/ teaching. 14:47 Patient left the ED. dsf Signatures: Thu Macdonald RN RN [facility] Donna Nielson, SAFETY TECHNICIAN SAFETY TECHNICIAN jam1 Omar Levy PA-C PA-C ar2 Mitra Mancini, SAFETY TECHNICIAN SAFETY TECHNICIAN ct3 Cally Luong RN RN f Behzad Gonzales, SAFETY TECHNICIAN SAFETY TECHNICIAN mdr MTDD
--- NOTE | 2016-07-20 14:47 | EDDOCDS ---
Physician Documentation [facility] Name: Fiona Spangler Age: 26 yrs Sex: Female : 1990 Arrival Date: 07/20/2016 Time: 11:27 Bed I1 / M1 Private MD: Unknown, Family Dr Disposition: 07/20/16 14:41 Discharged to Home/Self Care. Impression: Threatened . - Condition is Stable. - Discharge Instructions: Threatened Miscarriage, Pelvic Rest. - Medication Reconciliation, Local Pharmacy Hours form. - Follow up: Loretta Rose CNM; When: As previously arranged; Reason: Further diagnostic work-up, Recheck today's complaints, Continuance of care. - Problem is new. - Symptoms are unchanged. Historical: - Allergies: no known allergies; - Home Meds: 1. none - PMHx: none; - PSHx: ; - Social history: Smoking status: Patient states was never smoker of tobacco. No barriers to communication noted, The patient speaks fluent Martiniquais, Speaks appropriately for age. - Family history: Not pertinent. - : The pt / caregiver states he / she is not on anticoagulants. Home medication list is obtained from the patient. - Exposure Risk Screening:: None identified. DIVER ASSISTANT: 07/20 11:43 LMP 06/07/2016, Verified, EDC 03/14/2017, Gestational age from LMP: 6 weeks 1 srm day Vital Signs: 11:29 BP 155 / 84; Pulse 82; Resp 18; Temp 97.9(O); Pulse Ox 100% on R/A; Weight 72.57 kg / ct3 159.99 lbs (R); Height 5 ft. 6 in. (167.64 cm) (R); Pain 4/10; 14:43 BP 122 / 65; Pulse 88; Resp 16; Temp 98.4(O); Pulse Ox 100% on R/A; Pain 0/10; dsf 11:29 Body Mass Index 25.82 (72.57 kg, 167.64 cm) ct3 MDM: 13:29 Set up pelvic ordered. ar2 13:29 Undress patient appropriately for examination ordered. ar2 13:58 -RhoGAM Ultra-Filtered Plus 300 mcg IM once ordered. dsf 13:59 Draw Rhogam Ordered. EDMS Administered Medications: 14:29 Drug: -RhoGAM Ultra-Filtered Plus 300 mcg [RhoGAM Ultra-Filtered PLUS 1,500 unit (300 dsf mcg) intramuscular syringe (300 mcg)] Route: IM; Site: left deltoid; Signatures: Dispatcher [employer] Thu Sellers, RN RN Omar Oneill PA-C PA-C ar2 Fuller, Desiree, RN RN dsf MTDD
--- NOTE | 2016-07-22 15:48 | EDDOCDS ---
Physician Documentation [facility] Name: Fiona Spangler Age: 26 yrs Sex: Female : 1990 Arrival Date: 07/20/2016 Time: 11:27 Bed I1 / M1 Private MD: Unknown, Family Dr Disposition: 07/20/16 14:41 Discharged to Home/Self Care. Impression: Threatened . - Condition is Stable. - Discharge Instructions: Threatened Miscarriage, Pelvic Rest. - Medication Reconciliation, Local Pharmacy Hours form. - Follow up: Loretta Rose CNM; When: As previously arranged; Reason: Further diagnostic work-up, Recheck today's complaints, Continuance of care. - Problem is new. - Symptoms are unchanged. Historical: - Allergies: no known allergies; - Home Meds: 1. none - PMHx: none; - PSHx: ; - Social history: Smoking status: Patient states was never smoker of tobacco. No barriers to communication noted, The patient speaks fluent Zambian, Speaks appropriately for age. - Family history: Not pertinent. - : The pt / caregiver states he / she is not on anticoagulants. Home medication list is obtained from the patient. - Exposure Risk Screening:: None identified. 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 6 in. (167.64 cm) (R); Pain 4/10; 14:43 BP 122 / 65; Pulse 88; Resp 16; Temp 98.4(O); Pulse Ox 100% on R/A; Pain 0/10; dsf 11:29 Body Mass Index 25.82 (72.57 kg, 167.64 cm) ct3 MDM: 13:29 Set up pelvic ordered. ar2 13:29 Undress patient appropriately for examination ordered. ar2 13:58 -RhoGAM Ultra-Filtered Plus 300 mcg IM once ordered. dsf 13:59 Draw Rhogam Ordered. EDMS 14:49 [facility] Payment Agreement was scanned into [employer] and attached to record. mm15 14:49 Financial registration complete. mm15 07/21 11:56 T-Sheet-- Draft Copy was scanned into [employer] and attached to record. gb Administered Medications: 07/20 14:29 Drug: -RhoGAM Ultra-Filtered Plus 300 mcg [RhoGAM Ultra-Filtered PLUS 1,500 unit (300 dsf mcg) intramuscular syringe (300 mcg)] Route: IM; Site: left deltoid; Signatures: Dispatcher MedHost EDMS Thu Macdonald, RN RN srm Divine Tse, Reg Reg gb Omar Levy PADarnell RONQUILLO ar2 Cally Luong RN RN dsf Karen Milan mm15 The chart was reviewed and I authenticate all verbal orders and agree with the evaluation and treatment provided.Attachments: 14:49 [facility] Payment Agreement mm15 07/21 11:56 T-Sheet-- Draft Copy gb Chart Complete MTDD
--- NOTE | 2016-07-22 15:48 | EDDOCDS ---
Physician Documentation [facility] Name: Fiona Spangler Age: 26 yrs Sex: Female : 1990 Arrival Date: 07/20/2016 Time: 11:27 Bed I1 / M1 Private MD: Unknown, Family Dr Disposition: 07/20/16 14:41 Discharged to Home/Self Care. Impression: Threatened . - Condition is Stable. - Discharge Instructions: Threatened Miscarriage, Pelvic Rest. - Medication Reconciliation, Local Pharmacy Hours form. - Follow up: Loretta Rose CNM; When: As previously arranged; Reason: Further diagnostic work-up, Recheck today's complaints, Continuance of care. - Problem is new. - Symptoms are unchanged. Historical: - Allergies: no known allergies; - Home Meds: 1. none - PMHx: none; - PSHx: ; - Social history: Smoking status: Patient states was never smoker of tobacco. No barriers to communication noted, The patient speaks fluent Nigerian, Speaks appropriately for age. - Family history: Not pertinent. - : The pt / caregiver states he / she is not on anticoagulants. Home medication list is obtained from the patient. - Exposure Risk Screening:: None identified. 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 6 in. (167.64 cm) (R); Pain 4/10; 14:43 BP 122 / 65; Pulse 88; Resp 16; Temp 98.4(O); Pulse Ox 100% on R/A; Pain 0/10; dsf 11:29 Body Mass Index 25.82 (72.57 kg, 167.64 cm) ct3 MDM: 13:29 Set up pelvic ordered. ar2 13:29 Undress patient appropriately for examination ordered. ar2 13:58 -RhoGAM Ultra-Filtered Plus 300 mcg IM once ordered. dsf 13:59 Draw Rhogam Ordered. EDMS 14:49 [facility] Payment Agreement was scanned into [employer] and attached to record. mm15 14:49 Financial registration complete. mm15 07/21 11:56 T-Sheet-- Draft Copy was scanned into [employer] and attached to record. gb Administered Medications: 07/20 14:29 Drug: -RhoGAM Ultra-Filtered Plus 300 mcg [RhoGAM Ultra-Filtered PLUS 1,500 unit (300 dsf mcg) intramuscular syringe (300 mcg)] Route: IM; Site: left deltoid; Signatures: Dispatcher MedHost EDMS Thu Macdonald, RN RN srm Divine Tse, Reg Reg gb Omar Levy PADarnell RONQUILLO ar2 Cally Luong RN RN dsf Karen Milan mm15 The chart was reviewed and I authenticate all verbal orders and agree with the evaluation and treatment provided.Attachments: 14:49 [facility] Payment Agreement mm15 07/21 11:56 T-Sheet-- Draft Copy gb Chart Complete MTDD
--- NOTE | 2016-07-22 15:48 | EDDOCDS ---
Nurse's Notes [facility] [place] Name: Fiona Spangler Age: 26 yrs Sex: Female : 1990 Arrival Date: 07/20/2016 Time: 11:27 Bed I1 / M1 Private MD: Unknown, Family Dr Diagnosis: Threatened Presentation: 07/20 11:41 Presenting complaint: Patient states: seen here last night for lower bad pain. found srm out she was . started vaginal bleeding at 1045. has to wear a pad. positive cramping. Risk factors: The patient reports no loss of conciousness prior to arrival. This patient has not had a hysterectomy. This patient has not begun menopause. Adult Sepsis Screening: The patient does not have new or worsening altered mentation. Patient's respiratory rate is less than 22. Systolic blood pressure is greater than 100. Patient has a qSOFA score of 0- Negative Sepsis Screen. Suicide/Homicide risk assessment- the patient denies having any suicidal and/or homicidal ideations and does not present with any other emotional, behavioral or mental health complaints. Status: Patient is not a customer service advisor or dependent. Transition of care: patient was not received from another setting of care. 11:41 Acuity: JAMAL Level 3 srm 11:41 Method Of Arrival: Walkin/Carried/Asstd [facility] Triage Assessment: 11:43 General: Appears in no apparent distress, Behavior is appropriate for age, cooperative. srm Pain: Pain currently is 2 out of 10 on a pain scale. At worst was 4 out of 10 on a pain scale. HIV screening NA for this visit Offered previously. : Reports vaginal bleeding that is moderate flow. 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 none - PMHx: none; - PSHx: ; - Social history: Smoking status: Patient states was never smoker of tobacco. No barriers to communication noted, The patient speaks fluent Trinidadian, Speaks appropriately for age. - Family history: Not pertinent. - : The pt / caregiver states he / she is not on anticoagulants. Home medication list is obtained from the patient. - Exposure Risk Screening:: None identified. Screenin:43 Screening information is obtained from the patient. Fall risk: No risks identified. dsf Assistance ADL's: requires no assistance with activities of daily living. Abuse/DV Screen: The patient / caregiver reports he/she is: not in a situation that causes fear, pain or injury. Nutritional screening: No deficits noted. Advance Directives: Currently, there is no health care proxy. home support is adequate. Assessment: 14:30 General: Appears in no apparent distress, Behavior is appropriate for age, cooperative. dsf Neurological: Level of Consciousness is awake, alert. Cardiovascular: No deficits noted. Respiratory: No deficits noted. GI: No deficits noted. Derm: Skin is pink, warm & dry. 14:43 General: Appears in no apparent distress, comfortable, Behavior is appropriate for age, dsf cooperative. Pain: Denies pain. Neurological: Level of Consciousness is awake, alert. Cardiovascular: Capillary refill < 3 seconds. Respiratory: Airway is patent Respiratory effort is even, unlabored, Respiratory pattern is regular, symmetrical. : Reports no bleeding at this time. Derm: Skin is pink, warm & dry. Vital Signs: 11:29 BP 155 / 84; Pulse 82; Resp 18; Temp 97.9(O); Pulse Ox 100% on R/A; Weight 72.57 kg ct3 (R); Height 5 ft. 6 in. (167.64 cm) (R); Pain 4/10; 14:43 BP 122 / 65; Pulse 88; Resp 16; Temp 98.4(O); Pulse Ox 100% on R/A; Pain 0/10; dsf 11:29 Body Mass Index 25.82 (72.57 kg, 167.64 cm) ct3 Vitals: 11:29 Log In Time: July 20, 2016 at 11:27. ct3 ED Course: 11:28 Patient visited by Mitra Mancini PCA. ct3 11:28 Patient moved to Waiting ct3 11:29 Unknown, Family Dr is Private Physician. ct3 11:30 Patient moved to Pre RCE ct3 11:42 Triage Initiated srm 12:46 Patient moved to Triage 2 srm 12:50 [facility] ar2 12:50 Sai Haynes MD is Attending Physician. ar2 13:00 Patient visited by Omar Levy PA-C. ar2 13:35 Patient moved to I1 / M1 mdr 13:46 Assist provider with pelvic exam: Set up pelvic tray. Performed by Omar grimm PA-C. 14:08 Draw Rhogam Sent. jam1 14:30 Patient visited by Cally Luong RN. dsf 14:39 Loretta Rose CNM is Referral Physician. ar2 14:43 The patient / caregiver is instructed regarding the plan of care and ED course. dsf 14:43 No IV's were initiated during this patient's visit. dsf 14:49 [facility] Payment Agreement was scanned into [employer] and attached to record. mm15 07/21 11:56 T-Sheet-- Draft Copy was scanned into [employer] and attached to record. gb Administered Medications: 07/20 14:29 Drug: -RhoGAM Ultra-Filtered Plus 300 mcg [RhoGAM Ultra-Filtered PLUS 1,500 unit (300 dsf mcg) intramuscular syringe (300 mcg)] Route: IM; Site: left deltoid; Order Results: There are currently no results for this order. Outcome: 14:41 Discharge ordered by Provider. ar2 14:43 No special radiology studies were completed. Property sent home with patient. dsf 14:44 Discharge Assessment: Patient awake, alert and oriented x 3. No cognitive and/or dsf functional deficits noted. Patient verbalized understanding of disposition instructions. patient administered narcotics - no. 14:46 The following High Risk Discharge criteria are identified: None. Discharged to home dsf ambulatory. Condition: stable. Discharge instructions given to patient, Instructed on discharge instructions, follow up and referral plans. pelvic rest Demonstrated understanding of instructions, Pt was receptive of discharge instructions/ teaching. 14:47 Patient left the ED. dsf Signatures: Thu Macdonald, RN RN Donna Zamora, ACTIVITY DIRECTOR ACTIVITY DIRECTOR jam1 Divine Tse, Reg Reg gb Omar Levy PA-C PA-C ar2 Mitra Mancini, ACTIVITY DIRECTOR ACTIVITY DIRECTOR ct3 Cally Luong,JAMI wolff Karen Milan mm15 Behzad Gonzales, ACTIVITY DIRECTOR ACTIVITY DIRECTOR mdr Chart Complete MTDD
== END 2016-07-20 14:47 | disposition home or self-care (01) ==
LOC: M ED 11:27
DX: O20.0 Threatened abortion (principal); Z3A.01 Less than 8 weeks gestation of pregnancy
CPT/HCPCS: 96372; 99284; J2790

== ENCOUNTER 2016-07-23 18:12 | Emergency (ER) | payer OTHER ==
[2016-07-23] MEDS ORDERED: ACETAMINOPHEN 325 MG TAB As Ordered ONE (20:19)
[2016-07-23 20:39] LABS: MEAN CORPUSCULAR HEMOGLOBIN 30.1 pg (27.0-33.0); MEAN CORPUSCULAR HGB CONC 34.7 g/dl (32.0-36.5); MEAN CORPUSCULAR VOLUME 86.7 fl (80.0-96.0); RED CELL DISTRIBUTION WIDTH 11.6 % (11.5-14.5)
--- NOTE | 2016-07-23 21:40 | REPUSA ---
Clinical history: Pain. Findings: Real-time transabdominal and transvaginal ultrasound images of the pelvis were obtained. An anteverted uterus is noted, measuring 9.5 x 4.5 x 5.1 cm. The uterus demonstrates normal echotexture and echogenicity. The endometrial stripe is within normal limits. There is no evidence of an intraut erine gestation. The right ovary measures 2.6 x 1.5 x 2.1 cm. There is a right ovarian cyst measuring 1.5 cm. However, there is also a hyperechoic mass in the right adnexa measuring 1.4 x 1.1 x 1.1 cm. The left ovary measures 2.9 x 1.1 x 2.6 cm. No adnexal masses are seen. Color Doppler flow is seen wi thin both ovaries. There is no evidence of free fluid. Impression: 1. No evidence of an intrauterine gestation. 2. Hyperechoic mass in the right adnexa. A ectopic at the site cannot be excluded, although there is no discrete evidence of the pole. Follow-up with serial serum beta hCG levels would b e helpful for further evaluation. 3. Simple right ovarian cyst, likely a corpus luteum cyst.
--- NOTE | 2016-07-23 22:16 | EDDOCDS ---
Physician Documentation [facility] Name: Fiona Spangler Age: 26 yrs Sex: Female : 1990 Arrival Date: 07/23/2016 Time: 18:12 Bed I Private MD: Unknown, Family Dr Disposition: 07/23/16 22:07 Discharged to Home/Self Care. Impression: Spontaneous . - Condition is Stable. - Discharge Instructions: Incomplete Miscarriage, Miscarriage. - Prescriptions for Percocet 5- 325 mg Oral Tablet - take 1 tablet by ORAL route every 6 hours As needed MDD: 4 tabs; 20 tablet. - Medication Reconciliation, Local Pharmacy Hours form. - Follow up: Loretta Rose CNM; When: Call to arrange an appointment; Reason: Recheck today's complaints, Continuance of care. - Problem is new. - Symptoms are unchanged. Historical: - Allergies: no known allergies; - Home Meds: 1. multivitamin Oral cap 1 tablet daily - PMHx: none; - PSHx: ; - Social history: Smoking status: Patient states was never smoker of tobacco. No barriers to communication noted, The patient speaks fluent Zimbabwean. - Family history: Not pertinent. - : The pt / caregiver states he / she is not on anticoagulants. Home medication list is obtained from the patient. - Exposure Risk Screening:: None identified. 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 6 in. (167.64 cm) (R); Pain 5/10; 18:25 BP 118 / 82 RA Sitting (man/reg); rs3 22:13 BP 120 / 80; Pulse 72; Resp 18; Temp 99.2(O); Pulse Ox 100% on R/A; Pain 0/10; jmb 18:14 Body Mass Index 25.82 (72.57 kg, 167.64 cm) elp MDM: 20:13 US 1st trimester Ordered. EDMS 20:13 Acetaminophen Tablet 975 mg PO once ordered. mo1 20:13 Complete Blood Count Ordered. EDMS 20:13 Hcg, Serum Quantitative Ordered. EDMS 20:14 Type & Screen Ordered. EDMS 20:26 [facility] Payment Agreement was scanned into [employer] and attached to record. jp5 20:26 Financial registration complete. jp5 21:02 Hcg, Serum Quantitative Reviewed. mo1 21:02 Complete Blood Count Reviewed. mo1 21:26 TRANSVAGINAL US Ordered. EDMS 21:32 ANTIBODY IDENTIFICATION Ordered. EDMS Administered Medications: 20:21 Drug: Acetaminophen 975 mg [acetaminophen 325 mg tablet (3 tabs)] Route: PO; ms2 Signatures: Dispatcher MedHost EDMS Cassandra FloresRN RN rs3 Tom Jansen PA PA mo1 Cooper ShipleyRN RN Shari Singer jp5 Terry Aguilar RN ms2 The chart was reviewed and I authenticate all verbal orders and agree with the evaluation and treatment provided.Attachments: 20:26 [facility] Payment Agreement jp5 MTDD
--- NOTE | 2016-07-23 22:17 | EDDOCDS ---
Nurse's Notes [facility] Name: Fiona Spangler Age: 26 yrs Sex: Female : 1990 Arrival Date: 07/23/2016 Time: 18:12 Bed I Private MD: Unknown, Family Dr Diagnosis: Spontaneous Presentation: 07/23 18:16 Presenting complaint: Patient states: Left lower quadrant pain for 5 days. Was seen rs3 here Tuesday and Tuesday. Given RhoGAM on Tuesday. Followed up with Loretta Marsh (BERTHA/NOXIOUS WEEDS AND PEST INSPECTOR). HCG levels were decreased. developed Left shoulder pain yesterday. Risk factors: the patient reports no vaginal bleeding. Adult Sepsis Screening: The patient does not have new or worsening altered mentation. Patient's respiratory rate is less than 22. Systolic blood pressure is greater than 100. Patient has a qSOFA score of 0- Negative Sepsis Screen. Suicide/Homicide risk assessment- the patient denies having any suicidal and/or homicidal ideations and does not present with any other emotional, behavioral or mental health complaints. Status: Patient is not a college service officer or dependent. Transition of care: patient was not received from another setting of care. 18:16 Acuity: JAMAL Level 3 rs3 18:16 Method Of Arrival: Walkin/Carried/Asstd rs3 Triage Assessment: 18:21 General: Appears in no apparent distress. Pain: Location: left lower quadrant. HIV rs3 screening NA for this visit Offered previously. GI: No deficits noted. RN IV THERAPY: 18:21 LMP 06/07/2016, Verified, EDC 03/14/2017, Gestational age from LMP: 6 weeks 4 rs3 days Historical: - Allergies: no known allergies; - Home Meds: 1. multivitamin Oral cap 1 tablet daily - PMHx: none; - PSHx: ; - Social history: Smoking status: Patient states was never smoker of tobacco. No barriers to communication noted, The patient speaks fluent Upper Sorbian. - Family history: Not pertinent. - : The pt / caregiver states he / she is not on anticoagulants. Home medication list is obtained from the patient. - Exposure Risk Screening:: None identified. Screenin:23 Screening information is obtained from prior medical records. Fall risk: No risks ms2 identified. Assistance ADL's: requires no assistance with activities of daily living. Abuse/DV Screen: The patient / caregiver reports he/she is: not in a situation that causes fear, pain or injury. Nutritional screening: No deficits noted. Advance Directives: Currently, there is no health care proxy. There is no active DNR order. There is no living will. There is no Power of Platen Builder Up. Advance directive information has not previously been placed in an [facility] medical record. Further advance directive information is declined. home support is adequate. Assessment: 20:22 General: Appears in no apparent distress, medicated for pain. Behavior is cooperative. ms2 Pain: Pain currently is 5 out of 10 on a pain scale. Neurological: Level of Consciousness is awake, alert, obeys commands. Respiratory: No deficits noted. Airway is patent Respiratory effort is even, unlabored, Respiratory pattern is regular, symmetrical. GI: Abdomen is non- distended. Derm: Skin is pink, warm & dry. Musculoskeletal: Range of motion intact in all extremities. 22:13 General: Patient instructed on discharge instructions. Patient asked if there were any b questions regarding discharge, patient stated no. Patient signed discharge instructions. Patient discharged in stable condition.. 22:15 GI: Bowel sounds present X 4 quads. Abd is soft X [address] [facility] Vital Signs: 18:14 BP 155 / 101; Pulse 68; Resp 18; Temp 99.0(O); Pulse Ox 100% on R/A; Weight 72.57 kg el (R); Height 5 ft. 6 in. (167.64 cm) (R); Pain 5/10; 18:25 BP 118 / 82 RA Sitting (man/reg); rs3 22:13 BP 120 / 80; Pulse 72; Resp 18; Temp 99.2(O); Pulse Ox 100% on R/A; Pain 0/10; jmb 18:14 Body Mass Index 25.82 (72.57 kg, 167.64 cm) [facility] Vitals: 18:14 Log In Time: July 23, 2016 at 18:12. [facility] ED Course: 18:13 Patient visited by Barbara Molina PCA. elp 18:13 Patient moved to Waiting elp 18:14 Unknown, Family is Private Physician. elp 18:15 Patient visited by Barbara Molina PCA. elp 18:15 Patient moved to Pre RCE elp 18:20 Triage Initiated rs3 19:25 Patient moved to Triage 1 ct3 19:52 Tom Jansen PA is PHCP. mo1 19:52 Wyatt Penny DO is Attending Physician. mo1 20:01 Patient visited by Tom Jansen PA. mo1 20:22 Patient moved to TR1 ct3 20:22 Complete Blood Count Sent. ct3 20:22 Hcg, Serum Quantitative Sent. ct3 20:22 Type & Screen Sent. ct3 20:24 No IV's were initiated during this patient's visit. No procedures done that require ms2 assistance. 20:26 [facility] Payment Agreement was scanned into [employer] and attached to record. jp5 20:46 Patient visited by Mitra Mancini PCA. ct3 21:20 Patient visited by Mitra Mancini PCA. ct3 21:21 Patient moved to cz 21:53 Patient visited by Heaven Julio LPN. cp1 21:53 ANTIBODY IDENTIFICATION Sent. cp1 22:07 Loretta Rose CNM is Referral Physician. mo1 22:13 The patient / caregiver is instructed regarding the plan of care and ED course. jmb Administered Medications: 20:21 Drug: Acetaminophen 975 mg [acetaminophen 325 mg tablet (3 tabs)] Route: PO; ms2 Order Results: Lab Order: Complete Blood Count; SPEC'M 07/23/16 20:22 Test: WHITE BLOOD COUNT; Value: 6.0; Range: 4.0-10.0; Units: K/mm3; Status: F Test: RED BLOOD COUNT; Value: 4.21; Range: 4.00-5.40; Units: M/mm3; Status: F Test: HEMOGLOBIN; Value: 12.7; Range: 12.0-16.0; Units: g/dl; Status: F Test: HEMATOCRIT; Value: 36.5; Range: 36.0-47.0; Units: %; Status: F Test: MEAN CORPUSCULAR VOLUME; Value: 86.7; Range: 80.0-96.0; Units: fl; Status: F Test: MEAN CORPUSCULAR HEMOGLOBIN; Value: 30.1; Range: 27.0-33.0; Units: pg; Status: F Test: MEAN CORPUSCULAR HGB CONC; Value: 34.7; Range: 32.0-36.5; Units: g/dl; Status: F Test: RED CELL DISTRIBUTION WIDTH; Value: 11.6; Range: 11.5-14.5; Units: %; Status: F Test: PLATELET COUNT, AUTOMATED; Value: 207; Range: 150-450; Units: k/mm3; Status: F Lab Order: Hcg, Serum Quantitative; SPEC'M 07/23/16 20:22 Test: HCG, SERUM QUANTITATIVE; Value: 67; Units: MIU/ML; Status: F Test Note: ; GESTATIONAL AGE APPROXIMATE HCG RANGE (MIU/ML) 0.2-1 WEEK 5-50 1-2 WEEKS 50-500 2-3 WEEKS 100-5,000 3-4 WEEKS 500-10,000 4-5 WEEKS 1,000-50,000 5-6 WEEKS 10,000-100,000 6-8 WEEKS 15,000-200,000 2-3 MONTHS 10,000-100,000 NON FEMALES LESS THAN 3.0 Patient samples may contain human heterophilic antibodies that could react with immunoassays to give falsely elevated or depressed results. This assay has been designed to minimize interference from heterophilic antibodies. Elevated hCG levels have also been associated with trophoblastic disease and nontrophoblastic neoplasms. The possibility of having these diseases should be considered before a diagnosis of is made. This test is not intended for use as a surrogate marker for aiding in the diagnosis or monitoring the treatment of cancer patients. Siemens [employer] methodology. Lab Order: Type & Screen; SPEC'M 07/23/16 20:22 Test: BLOOD TYPE; Value: O NEG; Status: F Test: AB SCREEN (INDIRECT DEREK)GEL; Value: POSITIVE; Status: F Outcome: 22:07 Discharge ordered by Provider. mo1 22:13 Discharge Assessment: Patient awake, alert and oriented x 3. No cognitive and/or jmb functional deficits noted. Patient verbalized understanding of disposition instructions. Patient awake and alert. obeys commands, Oriented to person, place and time. Patient verbalized understanding of disposition instructions. Patient has no functional deficits. patient administered narcotics - no. The following High Risk Discharge criteria are identified: None. Discharged to home ambulatory, with significant other. Condition: stable. Discharge instructions given to patient, Instructed on discharge instructions, follow up and referral plans. medication usage, Demonstrated understanding of instructions, medications, Pt was receptive of discharge instructions/ teaching. Prescriptions given X 1. Ultrasound Study completed. Property sent home with patient. 22:15 Patient left the ED. jasmina Signatures: Terry Aguilar,RN RN ms2 Paulo Rosas RN RN cz Cassandra Flores RN RN rs3 Hevaen Julio,MAKEUP SALES CONSULTANT MAKEUP SALES CONSULTANT cp1 Mitra Mancini, RECREATION AIDE RECREATION AIDE ct3 Tom Jansen PA PA mo1 Barbara Molina, RECREATION AIDE RECREATION AIDE Cooper Contreras,RN RN Shari Singer jp5 MTDMarvin
--- NOTE | 2016-07-25 23:16 | EDDOCDS ---
Physician Documentation [facility] Name: Fiona Spangler Age: 26 yrs Sex: Female : 1990 Arrival Date: 07/23/2016 Time: 18:12 Bed I Private MD: Unknown, Family Dr Disposition: 07/23/16 22:07 Discharged to Home/Self Care. Impression: Spontaneous . - Condition is Stable. - Discharge Instructions: Incomplete Miscarriage, Miscarriage. - Prescriptions for Percocet 5- 325 mg Oral Tablet - take 1 tablet by ORAL route every 6 hours As needed MDD: 4 tabs; 20 tablet. - Medication Reconciliation, Local Pharmacy Hours form. - Follow up: Loretta Rose CNM; When: Call to arrange an appointment; Reason: Recheck today's complaints, Continuance of care. - Problem is new. - Symptoms are unchanged. Historical: - Allergies: no known allergies; - Home Meds: 1. multivitamin Oral cap 1 tablet daily - PMHx: none; - PSHx: ; - Social history: Smoking status: Patient states was never smoker of tobacco. No barriers to communication noted, The patient speaks fluent Scottish. - Family history: Not pertinent. - : The pt / caregiver states he / she is not on anticoagulants. Home medication list is obtained from the patient. - Exposure Risk Screening:: None identified. 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 6 in. (167.64 cm) (R); Pain 5/10; 18:25 BP 118 / 82 RA Sitting (man/reg); rs3 22:13 BP 120 / 80; Pulse 72; Resp 18; Temp 99.2(O); Pulse Ox 100% on R/A; Pain 0/10; jmb 18:14 Body Mass Index 25.82 (72.57 kg, 167.64 cm) elp MDM: 20:13 US 1st trimester Ordered. EDMS 20:13 Acetaminophen Tablet 975 mg PO once ordered. mo1 20:13 Complete Blood Count Ordered. EDMS 20:13 Hcg, Serum Quantitative Ordered. EDMS 20:14 Type & Screen Ordered. EDMS 20:26 [facility] Payment Agreement was scanned into [employer] and attached to record. jp5 : Financial registration complete. jp5 21:02 Hcg, Serum Quantitative Reviewed. mo1 21:02 Complete Blood Count Reviewed. mo1 21:26 TRANSVAGINAL US Ordered. EDMS 21:32 ANTIBODY IDENTIFICATION Ordered. EDMS 07/24 12:46 T-Sheet-- Draft Copy was scanned into [employer] and attached to record. gb 12:47 Radiology Report was scanned into [employer] and attached to record. gb Administered Medications: 07/23 20: Drug: Acetaminophen 975 mg [acetaminophen 325 mg tablet (3 tabs)] Route: PO; ms2 Signatures: Dispatcher [employer] EDMS Divine Tse, Reg Reg gb Cassandra Flores RN RN rs3 Tom Jansen PA PA mo1 Cooper Shipley,RN RN Shari Singer jp5 Terry Aguilar RN ms2 The chart was reviewed and I authenticate all verbal orders and agree with the evaluation and treatment provided.Attachments: 20:26 [facility] Payment Agreement [facility] 07/24 12:46 T-Sheet-- Draft Copy gb Chart Complete MTDD
--- NOTE | 2016-07-25 23:16 | EDDOCDS ---
Physician Documentation [facility] Name: Fiona Spangler Age: 26 yrs Sex: Female : 1990 Arrival Date: 07/23/2016 Time: 18:12 Bed I Private MD: Unknown, Family Dr Disposition: 07/23/16 22:07 Discharged to Home/Self Care. Impression: Spontaneous . - Condition is Stable. - Discharge Instructions: Incomplete Miscarriage, Miscarriage. - Prescriptions for Percocet 5- 325 mg Oral Tablet - take 1 tablet by ORAL route every 6 hours As needed MDD: 4 tabs; 20 tablet. - Medication Reconciliation, Local Pharmacy Hours form. - Follow up: Loretta Rose CNM; When: Call to arrange an appointment; Reason: Recheck today's complaints, Continuance of care. - Problem is new. - Symptoms are unchanged. Historical: - Allergies: no known allergies; - Home Meds: 1. multivitamin Oral cap 1 tablet daily - PMHx: none; - PSHx: ; - Social history: Smoking status: Patient states was never smoker of tobacco. No barriers to communication noted, The patient speaks fluent Wallisian. - Family history: Not pertinent. - : The pt / caregiver states he / she is not on anticoagulants. Home medication list is obtained from the patient. - Exposure Risk Screening:: None identified. 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 6 in. (167.64 cm) (R); Pain 5/10; 18:25 BP 118 / 82 RA Sitting (man/reg); rs3 22:13 BP 120 / 80; Pulse 72; Resp 18; Temp 99.2(O); Pulse Ox 100% on R/A; Pain 0/10; jmb 18:14 Body Mass Index 25.82 (72.57 kg, 167.64 cm) elp MDM: 20:13 US 1st trimester Ordered. EDMS 20:13 Acetaminophen Tablet 975 mg PO once ordered. mo1 20:13 Complete Blood Count Ordered. EDMS 20:13 Hcg, Serum Quantitative Ordered. EDMS 20:14 Type & Screen Ordered. EDMS 20:26 [facility] Payment Agreement was scanned into [employer] and attached to record. jp5 : Financial registration complete. jp5 21:02 Hcg, Serum Quantitative Reviewed. mo1 21:02 Complete Blood Count Reviewed. mo1 21:26 TRANSVAGINAL US Ordered. EDMS 21:32 ANTIBODY IDENTIFICATION Ordered. EDMS 07/24 12:46 T-Sheet-- Draft Copy was scanned into [employer] and attached to record. gb 12:47 Radiology Report was scanned into [employer] and attached to record. gb Administered Medications: 07/23 20: Drug: Acetaminophen 975 mg [acetaminophen 325 mg tablet (3 tabs)] Route: PO; ms2 Signatures: Dispatcher [employer] EDMS Divine Tse, Reg Reg gb Cassandra Flores RN RN rs3 Tom Jansen PA PA mo1 Cooper Shipley,RN RN Shari Singer jp5 Terry Aguilar RN ms2 The chart was reviewed and I authenticate all verbal orders and agree with the evaluation and treatment provided.Attachments: 20:26 [facility] Payment Agreement [facility] 07/24 12:46 T-Sheet-- Draft Copy gb Chart Complete MTDD
--- NOTE | 2016-07-25 23:17 | EDDOCDS ---
Nurse's Notes [facility] Name: Fiona Spangler Age: 26 yrs Sex: Female : 1990 Arrival Date: 07/23/2016 Time: 18:12 Bed I Private MD: Unknown, Family Dr Diagnosis: Spontaneous Presentation: 07/23 18:16 Presenting complaint: Patient states: Left lower quadrant pain for 5 days. Was seen rs3 here Tuesday and Tuesday. Given RhoGAM on Tuesday. Followed up with Loretta Marsh (BER[facility]A/[facility]ITARIAN). HCG levels were decreased. developed Left shoulder pain yesterday. Risk factors: the patient reports no vaginal bleeding. Adult Sepsis Screening: The patient does not have new or worsening altered mentation. Patient's respiratory rate is less than 22. Systolic blood pressure is greater than 100. Patient has a qSOFA score of 0- Negative Sepsis Screen. Suicide/Homicide risk assessment- the patient denies having any suicidal and/or homicidal ideations and does not present with any other emotional, behavioral or mental health complaints. Status: Patient is not a service delivery manager or dependent. Transition of care: patient was not received from another setting of care. 18:16 Acuity: JAMAL Level 3 rs3 18:16 Method Of Arrival: Walkin/Carried/Asstd rs3 Triage Assessment: 18:21 General: Appears in no apparent distress. Pain: Location: left lower quadrant. HIV rs3 screening NA for this visit Offered previously. GI: No deficits noted. 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 multivitamin Oral cap 1 tablet daily - PMHx: none; - PSHx: ; - Social history: Smoking status: Patient states was never smoker of tobacco. No barriers to communication noted, The patient speaks fluent Romanian. - Family history: Not pertinent. - : The pt / caregiver states he / she is not on anticoagulants. Home medication list is obtained from the patient. - Exposure Risk Screening:: None identified. Screenin:23 Screening information is obtained from prior medical records. Fall risk: No risks ms2 identified. Assistance ADL's: requires no assistance with activities of daily living. Abuse/DV Screen: The patient / caregiver reports he/she is: not in a situation that causes fear, pain or injury. Nutritional screening: No deficits noted. Advance Directives: Currently, there is no health care proxy. There is no active DNR order. There is no living will. There is no Power of Refrigeration Insulator. Advance directive information has not previously been placed in an [facility] medical record. Further advance directive information is declined. home support is adequate. Assessment: 20:22 General: Appears in no apparent distress, medicated for pain. Behavior is cooperative. ms2 Pain: Pain currently is 5 out of 10 on a pain scale. Neurological: Level of Consciousness is awake, alert, obeys commands. Respiratory: No deficits noted. Airway is patent Respiratory effort is even, unlabored, Respiratory pattern is regular, symmetrical. GI: Abdomen is non- distended. Derm: Skin is pink, warm & dry. Musculoskeletal: Range of motion intact in all extremities. 22:13 General: Patient instructed on discharge instructions. Patient asked if there were any b questions regarding discharge, patient stated no. Patient signed discharge instructions. Patient discharged in stable condition.. 22:15 GI: Bowel sounds present X 4 quads. Abd is soft X 4 quads. [facility] Vital Signs: 18:14 BP 155 / 101; Pulse 68; Resp 18; Temp 99.0(O); Pulse Ox 100% on R/A; Weight 72.57 kg el (R); Height 5 ft. 6 in. (167.64 cm) (R); Pain 5/10; 18:25 BP 118 / 82 RA Sitting (man/reg); rs3 22:13 BP 120 / 80; Pulse 72; Resp 18; Temp 99.2(O); Pulse Ox 100% on R/A; Pain 0/10; jmb 18:14 Body Mass Index 25.82 (72.57 kg, 167.64 cm) [facility] Vitals: 18:14 Log In Time: July 23, 2016 at 18:12. [facility] ED Course: 18:13 Patient visited by Barbara Molina PCA. elp 18:13 Patient moved to Waiting elp 18:14 Unknown, Family is Private Physician. elp 18:15 Patient visited by Barbara Molina PCA. elp 18:15 Patient moved to Pre RCE elp 18:20 Triage Initiated rs3 19:25 Patient moved to Triage 1 ct3 19:52 Tom Jansen PA is PHCP. mo1 19:52 Wyatt Penny DO is Attending Physician. mo1 20:01 Patient visited by Tom Jansen PA. mo1 20:22 Patient moved to TR1 ct3 20:22 Complete Blood Count Sent. ct3 20:22 Hcg, Serum Quantitative Sent. ct3 20:22 Type & Screen Sent. ct3 20:24 No IV's were initiated during this patient's visit. No procedures done that require ms2 assistance. 20:26 [facility] Payment Agreement was scanned into [facility] and attached to record. jp5 20:46 Patient visited by Mitra Mancini PCA. ct3 21:20 Patient visited by Mitra Mancini PCA. ct3 21:21 Patient moved to I cz 21:53 Patient visited by Heaven Julio LPN. cp1 21:53 ANTIBODY IDENTIFICATION Sent. cp1 22:07 Loretta Rose CNM is Referral Physician. mo1 22:13 The patient / caregiver is instructed regarding the plan of care and ED course. jmb 22:24 US 1st trimester Returned. EDMS 07/24 12:46 T-Sheet-- Draft Copy was scanned into [facility] and attached to record. gb 12:47 Radiology Report was scanned into [facility] and attached to record. gb Administered Medications: 07/23 20:21 Drug: Acetaminophen 975 mg [acetaminophen 325 mg tablet (3 tabs)] Route: PO; ms2 Order Results: Lab Order: Complete Blood Count; SPEC'M 07/23/16 20:22 Test: WHITE BLOOD COUNT; Value: 6.0; Range: 4.0-10.0; Units: K/mm3; Status: F Test: RED BLOOD COUNT; Value: 4.21; Range: 4.00-5.40; Units: M/mm3; Status: F Test: HEMOGLOBIN; Value: 12.7; Range: 12.0-16.0; Units: g/dl; Status: F Test: HEMATOCRIT; Value: 36.5; Range: 36.0-47.0; Units: %; Status: F Test: MEAN CORPUSCULAR VOLUME; Value: 86.7; Range: 80.0-96.0; Units: fl; Status: F Test: MEAN CORPUSCULAR HEMOGLOBIN; Value: 30.1; Range: 27.0-33.0; Units: pg; Status: F Test: MEAN CORPUSCULAR HGB CONC; Value: 34.7; Range: 32.0-36.5; Units: g/dl; Status: F Test: RED CELL DISTRIBUTION WIDTH; Value: 11.6; Range: 11.5-14.5; Units: %; Status: F Test: PLATELET COUNT, AUTOMATED; Value: 207; Range: 150-450; Units: k/mm3; Status: F Lab Order: Hcg, Serum Quantitative; SPEC'M 07/23/16 20:22 Test: HCG, SERUM QUANTITATIVE; Value: 67; Units: MIU/ML; Status: F Test Note: ; GESTATIONAL AGE APPROXIMATE HCG RANGE (MIU/ML) 0.2-1 WEEK 5-50 1-2 WEEKS 50-500 2-3 WEEKS 100-5,000 3-4 WEEKS 500-10,000 4-5 WEEKS 1,000-50,000 5-6 WEEKS 10,000-100,000 6-8 WEEKS 15,000-200,000 2-3 MONTHS 10,000-100,000 NON FEMALES LESS THAN 3.0 Patient samples may contain human heterophilic antibodies that could react with immunoassays to give falsely elevated or depressed results. This assay has been designed to minimize interference from heterophilic antibodies. Elevated hCG levels have also been associated with trophoblastic disease and nontrophoblastic neoplasms. The possibility of having these diseases should be considered before a diagnosis of is made. This test is not intended for use as a surrogate marker for aiding in the diagnosis or monitoring the treatment of cancer patients. [employer] methodology. Lab Order: Type & Screen; SPEC'M 07/23/16 20:22 Test: BLOOD TYPE; Value: O NEG; Status: F Test: AB SCREEN (INDIRECT DEREK)GEL; Value: POSITIVE; Status: F Lab Order: ANTIBODY IDENTIFICATION; SPEC'M 07/23/16 20:22 Test: ANTIBODY IDENTIFICATION; Value: Anti-D; Status: F Radiology Order: US 1st trimester Test: US 1st trimester REASON FOR EXAMINATION: left pelvic pain; ; Clinical history: Pain.; Findings: Real-time transabdominal and transvaginal ultrasound images of the pelvis were obtained. An; anteverted uterus is noted, measuring 9.5 x 4.5 x 5.1 cm. The uterus demonstrates normal echotexture; and echogenicity. The endometrial stripe is within normal limits. There is no evidence of an intraut; erine gestation. The right ovary measures 2.6 x 1.5 x 2.1 cm. There is a right ovarian cyst measuring; 1.5 cm. However, there is also a hyperechoic mass in the right adnexa measuring 1.4 x 1.1 x 1.1 cm.; The left ovary measures 2.9 x 1.1 x 2.6 cm. No adnexal masses are seen. Color Doppler flow is seen wi; thin both ovaries. There is no evidence of free fluid.; Impression:; 1. No evidence of an intrauterine gestation.; 2. Hyperechoic mass in the right adnexa. A ectopic at the site cannot be excluded, although; there is no discrete evidence of the pole. Follow-up with serial serum beta hCG levels would b; e helpful for further evaluation.; 3. Simple right ovarian cyst, likely a corpus luteum cyst.; ; Outcome: 22:07 Discharge ordered by Provider. mo1 22:13 Discharge Assessment: Patient awake, alert and oriented x 3. No cognitive and/or jmb functional deficits noted. Patient verbalized understanding of disposition instructions. Patient awake and alert. obeys commands, Oriented to person, place and time. Patient verbalized understanding of disposition instructions. Patient has no functional deficits. patient administered narcotics - no. The following High Risk Discharge criteria are identified: None. Discharged to home ambulatory, with significant other. Condition: stable. Discharge instructions given to patient, Instructed on discharge instructions, follow up and referral plans. medication usage, Demonstrated understanding of instructions, medications, Pt was receptive of discharge instructions/ teaching. Prescriptions given X 1. Ultrasound Study completed. Property sent home with patient. 22:15 Patient left the ED. b Signatures: Dispatcher [facility] Terry AguilarRN RN ms2 Paulo Rosas, RN RN cz Dedrick, Divine, Reg Reg gb Sandra,Cassandra,RN RN rs3 Heaven Julio,SALES EXECUTIVE INSURANCE SALES EXECUTIVE INSURANCE cp1 Mitra Mancini, CONTINUOUS MINER CONTINUOUS MINER ct3 Tom Jansen PA PA mo1 Barbara Molina, CONTINUOUS MINER CONTINUOUS MINER elp Cooper Shipley,JAMI RN saqibb Matthew, Shari 5 Chart Complete MTDD
--- NOTE | 2016-07-27 20:06 | EDDOCDS ---
Nurse's Notes [facility] Name: Fiona Spangler Age: 26 yrs Sex: Female : 1990 Arrival Date: 07/23/2016 Time: 18:12 Bed I Private MD: Unknown, Family Dr Diagnosis: Spontaneous Presentation: 07/23 18:16 Presenting complaint: Patient states: Left lower quadrant pain for 5 days. Was seen rs3 here Tuesday and Tuesday. Given RhoGAM on Tuesday. Followed up with Loretta Marsh (BERTHA/FIRE SYSTEMS INSPECTOR). HCG levels were decreased. developed Left shoulder pain yesterday. Risk factors: the patient reports no vaginal bleeding. Adult Sepsis Screening: The patient does not have new or worsening altered mentation. Patient's respiratory rate is less than 22. Systolic blood pressure is greater than 100. Patient has a qSOFA score of 0- Negative Sepsis Screen. Suicide/Homicide risk assessment- the patient denies having any suicidal and/or homicidal ideations and does not present with any other emotional, behavioral or mental health complaints. Status: Patient is not a food service specialist or dependent. Transition of care: patient was not received from another setting of care. 18:16 Acuity: JAMAL Level 3 rs3 18:16 Method Of Arrival: Walkin/Carried/Asstd rs3 Triage Assessment: 18:21 General: Appears in no apparent distress. Pain: Location: left lower quadrant. HIV rs3 screening NA for this visit Offered previously. GI: No deficits noted. 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 multivitamin Oral cap 1 tablet daily - PMHx: none; - PSHx: ; - Social history: Smoking status: Patient states was never smoker of tobacco. No barriers to communication noted, The patient speaks fluent Turkmen. - Family history: Not pertinent. - : The pt / caregiver states he / she is not on anticoagulants. Home medication list is obtained from the patient. - Exposure Risk Screening:: None identified. Screenin:23 Screening information is obtained from prior medical records. Fall risk: No risks ms2 identified. Assistance ADL's: requires no assistance with activities of daily living. Abuse/DV Screen: The patient / caregiver reports he/she is: not in a situation that causes fear, pain or injury. Nutritional screening: No deficits noted. Advance Directives: Currently, there is no health care proxy. There is no active DNR order. There is no living will. There is no Power of Labor Representative. Advance directive information has not previously been placed in an [facility] medical record. Further advance directive information is declined. home support is adequate. Assessment: 20:22 General: Appears in no apparent distress, medicated for pain. Behavior is cooperative. ms2 Pain: Pain currently is 5 out of 10 on a pain scale. Neurological: Level of Consciousness is awake, alert, obeys commands. Respiratory: No deficits noted. Airway is patent Respiratory effort is even, unlabored, Respiratory pattern is regular, symmetrical. GI: Abdomen is non- distended. Derm: Skin is pink, warm & dry. Musculoskeletal: Range of motion intact in all extremities. 22:13 General: Patient instructed on discharge instructions. Patient asked if there were any b questions regarding discharge, patient stated no. Patient signed discharge instructions. Patient discharged in stable condition.. 22:15 GI: Bowel sounds present X 4 quads. Abd is soft X [address] [facility] Vital Signs: 18:14 BP 155 / 101; Pulse 68; Resp 18; Temp 99.0(O); Pulse Ox 100% on R/A; Weight 72.57 kg el (R); Height 5 ft. 6 in. (167.64 cm) (R); Pain 5/10; 18:25 BP 118 / 82 RA Sitting (man/reg); rs3 22:13 BP 120 / 80; Pulse 72; Resp 18; Temp 99.2(O); Pulse Ox 100% on R/A; Pain 0/10; jmb 18:14 Body Mass Index 25.82 (72.57 kg, 167.64 cm) [facility] Vitals: 18:14 Log In Time: July 23, 2016 at 18:12. [facility] ED Course: 18:13 Patient visited by Barbara Molina PCA. elp 18:13 Patient moved to Waiting elp 18:14 Unknown, Family is Private Physician. elp 18:15 Patient visited by Barbara Molina PCA. elp 18:15 Patient moved to Pre RCE elp 18:20 Triage Initiated rs3 19:25 Patient moved to Triage 1 ct3 19:52 Tom Jansen PA is PHCP. mo1 19:52 Wyatt Penny DO is Attending Physician. mo1 20:01 Patient visited by Tom Jansen PA. mo1 20:22 Patient moved to TR1 ct3 20:22 Complete Blood Count Sent. ct3 20:22 Hcg, Serum Quantitative Sent. ct3 20:22 Type & Screen Sent. ct3 20:24 No IV's were initiated during this patient's visit. No procedures done that require ms2 assistance. 20:26 [facility] Payment Agreement was scanned into [employer] and attached to record. jp5 20:46 Patient visited by Mitra Mancini PCA. ct3 21:20 Patient visited by Mitra Mancini PCA. ct3 21:21 Patient moved to I cz 21:53 Patient visited by Heaven Julio LPN. cp1 21:53 ANTIBODY IDENTIFICATION Sent. cp1 22:07 Loretta Rose CNM is Referral Physician. mo1 22:13 The patient / caregiver is instructed regarding the plan of care and ED course. jmb 22:24 US 1st trimester Returned. EDMS 07/24 12:46 T-Sheet-- Draft Copy was scanned into [employer] and attached to record. gb 12:47 Radiology Report was scanned into [employer] and attached to record. gb Administered Medications: 07/23 20:21 Drug: Acetaminophen 975 mg [acetaminophen 325 mg tablet (3 tabs)] Route: PO; ms2 Order Results: Lab Order: Complete Blood Count; SPEC'M 07/23/16 20:22 Test: WHITE BLOOD COUNT; Value: 6.0; Range: 4.0-10.0; Units: K/mm3; Status: F Test: RED BLOOD COUNT; Value: 4.21; Range: 4.00-5.40; Units: M/mm3; Status: F Test: HEMOGLOBIN; Value: 12.7; Range: 12.0-16.0; Units: g/dl; Status: F Test: HEMATOCRIT; Value: 36.5; Range: 36.0-47.0; Units: %; Status: F Test: MEAN CORPUSCULAR VOLUME; Value: 86.7; Range: 80.0-96.0; Units: fl; Status: F Test: MEAN CORPUSCULAR HEMOGLOBIN; Value: 30.1; Range: 27.0-33.0; Units: pg; Status: F Test: MEAN CORPUSCULAR HGB CONC; Value: 34.7; Range: 32.0-36.5; Units: g/dl; Status: F Test: RED CELL DISTRIBUTION WIDTH; Value: 11.6; Range: 11.5-14.5; Units: %; Status: F Test: PLATELET COUNT, AUTOMATED; Value: 207; Range: 150-450; Units: k/mm3; Status: F Lab Order: Hcg, Serum Quantitative; SPEC'M 07/23/16 20:22 Test: HCG, SERUM QUANTITATIVE; Value: 67; Units: MIU/ML; Status: F Test Note: ; GESTATIONAL AGE APPROXIMATE HCG RANGE (MIU/ML) 0.2-1 WEEK 5-50 1-2 WEEKS 50-500 2-3 WEEKS 100-5,000 3-4 WEEKS 500-10,000 4-5 WEEKS 1,000-50,000 5-6 WEEKS 10,000-100,000 6-8 WEEKS 15,000-200,000 2-3 MONTHS 10,000-100,000 NON FEMALES LESS THAN 3.0 Patient samples may contain human heterophilic antibodies that could react with immunoassays to give falsely elevated or depressed results. This assay has been designed to minimize interference from heterophilic antibodies. Elevated hCG levels have also been associated with trophoblastic disease and nontrophoblastic neoplasms. The possibility of having these diseases should be considered before a diagnosis of is made. This test is not intended for use as a surrogate marker for aiding in the diagnosis or monitoring the treatment of cancer patients. Siemens Happlink methodology. Lab Order: Type & Screen; SPEC'M 07/23/16 20:22 Test: BLOOD TYPE; Value: O NEG; Status: F Test: AB SCREEN (INDIRECT DEREK)GEL; Value: POSITIVE; Status: F Lab Order: ANTIBODY IDENTIFICATION; SPEC'M 07/23/16 20:22 Test: ANTIBODY IDENTIFICATION; Value: Anti-D; Status: F Radiology Order: US 1st trimester Test: US 1st trimester REASON FOR EXAMINATION: left pelvic pain; ; Clinical history: Pain.; Findings: Real-time transabdominal and transvaginal ultrasound images of the pelvis were obtained. An; anteverted uterus is noted, measuring 9.5 x 4.5 x 5.1 cm. The uterus demonstrates normal echotexture; and echogenicity. The endometrial stripe is within normal limits. There is no evidence of an intraut; erine gestation. The right ovary measures 2.6 x 1.5 x 2.1 cm. There is a right ovarian cyst measuring; 1.5 cm. However, there is also a hyperechoic mass in the right adnexa measuring 1.4 x 1.1 x 1.1 cm.; The left ovary measures 2.9 x 1.1 x 2.6 cm. No adnexal masses are seen. Color Doppler flow is seen wi; thin both ovaries. There is no evidence of free fluid.; Impression:; 1. No evidence of an intrauterine gestation.; 2. Hyperechoic mass in the right adnexa. A ectopic at the site cannot be excluded, although; there is no discrete evidence of the pole. Follow-up with serial serum beta hCG levels would b; e helpful for further evaluation.; 3. Simple right ovarian cyst, likely a corpus luteum cyst.; ; Outcome: 22:07 Discharge ordered by Provider. mo1 22:13 Discharge Assessment: Patient awake, alert and oriented x 3. No cognitive and/or jmb functional deficits noted. Patient verbalized understanding of disposition instructions. Patient awake and alert. obeys commands, Oriented to person, place and time. Patient verbalized understanding of disposition instructions. Patient has no functional deficits. patient administered narcotics - no. The following High Risk Discharge criteria are identified: None. Discharged to home ambulatory, with significant other. Condition: stable. Discharge instructions given to patient, Instructed on discharge instructions, follow up and referral plans. medication usage, Demonstrated understanding of instructions, medications, Pt was receptive of discharge instructions/ teaching. Prescriptions given X 1. Ultrasound Study completed. Property sent home with patient. 22:15 Patient left the ED. b Signatures: Dispatcher [facility] Terry AguilarRN RN ms2 Paulo Rosas, RN RN cz Dedrick, Divine, Reg Reg gb Sandra,Cassandra,RN RN rs3 Heaven Julio,SPA DIRECTOR/FINANCE SPA DIRECTOR/FINANCE cp1 Mitra Mancini, RESPIRATORY CARE ASSISTANT RESPIRATORY CARE ASSISTANT ct3 Tom Jansen PA PA mo1 Barbara Molina, RESPIRATORY CARE ASSISTANT RESPIRATORY CARE ASSISTANT elp Cooper Shipley,RN RN saqibb Shari Castro 5 MTDD
--- NOTE | 2016-07-27 20:06 | EDDOCDS ---
Physician Documentation [facility] Name: Fiona Spangler Age: 26 yrs Sex: Female : 1990 Arrival Date: 07/23/2016 Time: 18:12 Bed I Private MD: Unknown, Family Dr Disposition: 07/23/16 22:07 Discharged to Home/Self Care. Impression: Spontaneous . - Condition is Stable. - Discharge Instructions: Incomplete Miscarriage, Miscarriage. - Prescriptions for Percocet 5- 325 mg Oral Tablet - take 1 tablet by ORAL route every 6 hours As needed MDD: 4 tabs; 20 tablet. - Medication Reconciliation, Local Pharmacy Hours form. - Follow up: Loretta Arriola CNM; When: Call to arrange an appointment; Reason: Recheck today's complaints, Continuance of care. - Problem is new. - Symptoms are unchanged. Historical: - Allergies: no known allergies; - Home Meds: 1. multivitamin Oral cap 1 tablet daily - PMHx: none; - PSHx: ; - Social history: Smoking status: Patient states was never smoker of tobacco. No barriers to communication noted, The patient speaks fluent Bangladeshi. - Family history: Not pertinent. - : The pt / caregiver states he / she is not on anticoagulants. Home medication list is obtained from the patient. - Exposure Risk Screening:: None identified. 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 6 in. (167.64 cm) (R); Pain 5/10; 18:25 BP 118 / 82 RA Sitting (man/reg); rs3 22:13 BP 120 / 80; Pulse 72; Resp 18; Temp 99.2(O); Pulse Ox 100% on R/A; Pain 0/10; jmb 18:14 Body Mass Index 25.82 (72.57 kg, 167.64 cm) elp MDM: 20:13 US 1st trimester Ordered. EDMS 20:13 Acetaminophen Tablet 975 mg PO once ordered. mo1 20:13 Complete Blood Count Ordered. EDMS 20:13 Hcg, Serum Quantitative Ordered. EDMS 20:14 Type & Screen Ordered. EDMS : [facility] Payment Agreement was scanned into [employer] and attached to record. jp5 : Financial registration complete. jp5 21:02 Hcg, Serum Quantitative Reviewed. mo1 21:02 Complete Blood Count Reviewed. mo1 21:26 TRANSVAGINAL US Ordered. EDMS 21:32 ANTIBODY IDENTIFICATION Ordered. EDMS 07/24 12:46 T-Sheet-- Draft Copy was scanned into [employer] and attached to record. gb 12:47 Radiology Report was scanned into [employer] and attached to record. gb 07/27 20:03 Type & Screen Reviewed. ml 20:03 ANTIBODY IDENTIFICATION Reviewed. ml 20:03 US 1st trimester Reviewed. ml Administered Medications: 07/23 20:21 Drug: Acetaminophen 975 mg [acetaminophen 325 mg tablet (3 tabs)] Route: PO; ms2 Addendum: 07/27/2016 20:04 Radiology Callback: Radiology results faxed to primary care physician/provider. loretta arriola faxed formal report of pelvic us for fu mlg. Signatures: Dispatcher [employer] EDSC Shantel Nye MD MD ml Divine Tse, Reg Reg Cassandra Crouch,RN RN rs3 Tom Jansen PA PA mo1 Cooper Shipley RN RN Shari Singer jp5 Terry Aguilar RN ms2 The chart was reviewed and I authenticate all verbal orders and agree with the evaluation and treatment provided.Attachments: 07/23 20: [facility] Payment Agreement 5 07/24 12:46 T-Sheet-- Draft Copy gb MTDD
--- NOTE | 2016-07-27 20:06 | EDDOCDS ---
Physician Documentation [facility] Name: Fiona Spangler Age: 26 yrs Sex: Female : 1990 Arrival Date: 07/23/2016 Time: 18:12 Bed I Private MD: Unknown, Family Dr Disposition: 07/23/16 22:07 Discharged to Home/Self Care. Impression: Spontaneous . - Condition is Stable. - Discharge Instructions: Incomplete Miscarriage, Miscarriage. - Prescriptions for Percocet 5- 325 mg Oral Tablet - take 1 tablet by ORAL route every 6 hours As needed MDD: 4 tabs; 20 tablet. - Medication Reconciliation, Local Pharmacy Hours form. - Follow up: Loretta Arriola CNM; When: Call to arrange an appointment; Reason: Recheck today's complaints, Continuance of care. - Problem is new. - Symptoms are unchanged. Historical: - Allergies: no known allergies; - Home Meds: 1. multivitamin Oral cap 1 tablet daily - PMHx: none; - PSHx: ; - Social history: Smoking status: Patient states was never smoker of tobacco. No barriers to communication noted, The patient speaks fluent St Helenian. - Family history: Not pertinent. - : The pt / caregiver states he / she is not on anticoagulants. Home medication list is obtained from the patient. - Exposure Risk Screening:: None identified. 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 6 in. (167.64 cm) (R); Pain 5/10; 18:25 BP 118 / 82 RA Sitting (man/reg); rs3 22:13 BP 120 / 80; Pulse 72; Resp 18; Temp 99.2(O); Pulse Ox 100% on R/A; Pain 0/10; jmb 18:14 Body Mass Index 25.82 (72.57 kg, 167.64 cm) elp MDM: 20:13 US 1st trimester Ordered. EDMS 20:13 Acetaminophen Tablet 975 mg PO once ordered. mo1 20:13 Complete Blood Count Ordered. EDMS 20:13 Hcg, Serum Quantitative Ordered. EDMS 20:14 Type & Screen Ordered. EDMS : [facility] [place] Payment Agreement was scanned into [employer] and attached to record. jp5 : Financial registration complete. jp5 21:02 Hcg, Serum Quantitative Reviewed. mo1 21:02 Complete Blood Count Reviewed. mo1 21:26 TRANSVAGINAL US Ordered. EDMS 21:32 ANTIBODY IDENTIFICATION Ordered. EDMS 07/24 12:46 T-Sheet-- Draft Copy was scanned into [employer] and attached to record. gb 12:47 Radiology Report was scanned into [employer] and attached to record. gb 07/27 20:03 Type & Screen Reviewed. ml 20:03 ANTIBODY IDENTIFICATION Reviewed. ml 20:03 US 1st trimester Reviewed. ml Administered Medications: 07/23 20:21 Drug: Acetaminophen 975 mg [acetaminophen 325 mg tablet (3 tabs)] Route: PO; ms2 Addendum: 07/27/2016 20:04 Radiology Callback: Radiology results faxed to primary care physician/provider. loretta arriola faxed formal report of pelvic us for fu mlg. Signatures: Dispatcher [employer] EDMA Shantel Nye MD MD ml Divine Tse, Reg Reg Cassandra Crouch,RN RN rs3 Tom Jansen PA PA mo1 Cooper Shipley RN RN Shari Singer jp5 Terry Aguilar RN ms2 The chart was reviewed and I authenticate all verbal orders and agree with the evaluation and treatment provided.Attachments: 07/23 20: [facility] [place] Payment Agreement 5 07/24 12:46 T-Sheet-- Draft Copy gb MTDD
--- NOTE | 2016-07-27 20:07 | EDDOCDS ---
Nurse's Notes [facility] Name: Fiona Spangler Age: 26 yrs Sex: Female : 1990 Arrival Date: 07/23/2016 Time: 18:12 Bed I Private MD: Unknown, Family Dr Diagnosis: Spontaneous Presentation: 07/23 18:16 Presenting complaint: Patient states: Left lower quadrant pain for 5 days. Was seen rs3 here Tuesday and Tuesday. Given RhoGAM on Tuesday. Followed up with Loretta Marsh (BERTHA/PHYSICIAN ASSISTANT SURGERY). HCG levels were decreased. developed Left shoulder pain yesterday. Risk factors: the patient reports no vaginal bleeding. Adult Sepsis Screening: The patient does not have new or worsening altered mentation. Patient's respiratory rate is less than 22. Systolic blood pressure is greater than 100. Patient has a qSOFA score of 0- Negative Sepsis Screen. Suicide/Homicide risk assessment- the patient denies having any suicidal and/or homicidal ideations and does not present with any other emotional, behavioral or mental health complaints. Status: Patient is not a tax services intern or dependent. Transition of care: patient was not received from another setting of care. 18:16 Acuity: JAMAL Level 3 rs3 18:16 Method Of Arrival: Walkin/Carried/Asstd rs3 Triage Assessment: 18:21 General: Appears in no apparent distress. Pain: Location: left lower quadrant. HIV rs3 screening NA for this visit Offered previously. GI: No deficits noted. LOW VISION THERAPIST: 18:21 LMP 06/07/2016, Verified, EDC 03/14/2017, Gestational age from LMP: 6 weeks 4 rs3 days Historical: - Allergies: no known allergies; - Home Meds: 1. multivitamin Oral cap 1 tablet daily - PMHx: none; - PSHx: ; - Social history: Smoking status: Patient states was never smoker of tobacco. No barriers to communication noted, The patient speaks fluent Slovenian. - Family history: Not pertinent. - : The pt / caregiver states he / she is not on anticoagulants. Home medication list is obtained from the patient. - Exposure Risk Screening:: None identified. Screenin:23 Screening information is obtained from prior medical records. Fall risk: No risks ms2 identified. Assistance ADL's: requires no assistance with activities of daily living. Abuse/DV Screen: The patient / caregiver reports he/she is: not in a situation that causes fear, pain or injury. Nutritional screening: No deficits noted. Advance Directives: Currently, there is no health care proxy. There is no active DNR order. There is no living will. There is no Power of Paint Sprayer Sandblaster. Advance directive information has not previously been placed in an [facility] medical record. Further advance directive information is declined. home support is adequate. Assessment: 20:22 General: Appears in no apparent distress, medicated for pain. Behavior is cooperative. ms2 Pain: Pain currently is 5 out of 10 on a pain scale. Neurological: Level of Consciousness is awake, alert, obeys commands. Respiratory: No deficits noted. Airway is patent Respiratory effort is even, unlabored, Respiratory pattern is regular, symmetrical. GI: Abdomen is non- distended. Derm: Skin is pink, warm & dry. Musculoskeletal: Range of motion intact in all extremities. 22:13 General: Patient instructed on discharge instructions. Patient asked if there were any b questions regarding discharge, patient stated no. Patient signed discharge instructions. Patient discharged in stable condition.. 22:15 GI: Bowel sounds present X 4 quads. Abd is soft X 4 quads. [facility] Vital Signs: 18:14 BP 155 / 101; Pulse 68; Resp 18; Temp 99.0(O); Pulse Ox 100% on R/A; Weight 72.57 kg el (R); Height 5 ft. 6 in. (167.64 cm) (R); Pain 5/10; 18:25 BP 118 / 82 RA Sitting (man/reg); rs3 22:13 BP 120 / 80; Pulse 72; Resp 18; Temp 99.2(O); Pulse Ox 100% on R/A; Pain 0/10; jmb 18:14 Body Mass Index 25.82 (72.57 kg, 167.64 cm) [facility] Vitals: 18:14 Log In Time: July 23, 2016 at 18:12. [facility] ED Course: 18:13 Patient visited by Barbara Molina PCA. elp 18:13 Patient moved to Waiting elp 18:14 Unknown, Family is Private Physician. elp 18:15 Patient visited by Barbara Molina PCA. elp 18:15 Patient moved to Pre RCE elp 18:20 Triage Initiated rs3 19:25 Patient moved to Triage 1 ct3 19:52 Tom Jansen PA is PHCP. mo1 19:52 Wyatt Penny DO is Attending Physician. mo1 20:01 Patient visited by Tom Jansen PA. mo1 20:22 Patient moved to TR1 ct3 20:22 Complete Blood Count Sent. ct3 20:22 Hcg, Serum Quantitative Sent. ct3 20:22 Type & Screen Sent. ct3 20:24 No IV's were initiated during this patient's visit. No procedures done that require ms2 assistance. 20:26 [facility] Payment Agreement was scanned into [employer] and attached to record. jp5 20:46 Patient visited by Mitra Mancini PCA. ct3 21:20 Patient visited by Mitra Mancini PCA. ct3 21:21 Patient moved to I cz 21:53 Patient visited by Heaven Julio LPN. cp1 21:53 ANTIBODY IDENTIFICATION Sent. cp1 22:07 Loretta Rose CNM is Referral Physician. mo1 22:13 The patient / caregiver is instructed regarding the plan of care and ED course. jmb 22:24 US 1st trimester Returned. EDMS 07/24 12:46 T-Sheet-- Draft Copy was scanned into [employer] and attached to record. gb 12:47 Radiology Report was scanned into [employer] and attached to record. gb Administered Medications: 07/23 20:21 Drug: Acetaminophen 975 mg [acetaminophen 325 mg tablet (3 tabs)] Route: PO; ms2 Order Results: Lab Order: Complete Blood Count; SPEC'M 07/23/16 20:22 Test: WHITE BLOOD COUNT; Value: 6.0; Range: 4.0-10.0; Units: K/mm3; Status: F Test: RED BLOOD COUNT; Value: 4.21; Range: 4.00-5.40; Units: M/mm3; Status: F Test: HEMOGLOBIN; Value: 12.7; Range: 12.0-16.0; Units: g/dl; Status: F Test: HEMATOCRIT; Value: 36.5; Range: 36.0-47.0; Units: %; Status: F Test: MEAN CORPUSCULAR VOLUME; Value: 86.7; Range: 80.0-96.0; Units: fl; Status: F Test: MEAN CORPUSCULAR HEMOGLOBIN; Value: 30.1; Range: 27.0-33.0; Units: pg; Status: F Test: MEAN CORPUSCULAR HGB CONC; Value: 34.7; Range: 32.0-36.5; Units: g/dl; Status: F Test: RED CELL DISTRIBUTION WIDTH; Value: 11.6; Range: 11.5-14.5; Units: %; Status: F Test: PLATELET COUNT, AUTOMATED; Value: 207; Range: 150-450; Units: k/mm3; Status: F Lab Order: Hcg, Serum Quantitative; SPEC'M 07/23/16 20:22 Test: HCG, SERUM QUANTITATIVE; Value: 67; Units: MIU/ML; Status: F Test Note: ; GESTATIONAL AGE APPROXIMATE HCG RANGE (MIU/ML) 0.2-1 WEEK 5-50 1-2 WEEKS 50-500 2-3 WEEKS 100-5,000 3-4 WEEKS 500-10,000 4-5 WEEKS 1,000-50,000 5-6 WEEKS 10,000-100,000 6-8 WEEKS 15,000-200,000 2-3 MONTHS 10,000-100,000 NON FEMALES LESS THAN 3.0 Patient samples may contain human heterophilic antibodies that could react with immunoassays to give falsely elevated or depressed results. This assay has been designed to minimize interference from heterophilic antibodies. Elevated hCG levels have also been associated with trophoblastic disease and nontrophoblastic neoplasms. The possibility of having these diseases should be considered before a diagnosis of is made. This test is not intended for use as a surrogate marker for aiding in the diagnosis or monitoring the treatment of cancer patients. Siemens Fresh Direct methodology. Lab Order: Type & Screen; SPEC'M 07/23/16 20:22 Test: BLOOD TYPE; Value: O NEG; Status: F Test: AB SCREEN (INDIRECT DEREK)GEL; Value: POSITIVE; Status: F Lab Order: ANTIBODY IDENTIFICATION; SPEC'M 07/23/16 20:22 Test: ANTIBODY IDENTIFICATION; Value: Anti-D; Status: F Radiology Order: US 1st trimester Test: US 1st trimester REASON FOR EXAMINATION: left pelvic pain; ; Clinical history: Pain.; Findings: Real-time transabdominal and transvaginal ultrasound images of the pelvis were obtained. An; anteverted uterus is noted, measuring 9.5 x 4.5 x 5.1 cm. The uterus demonstrates normal echotexture; and echogenicity. The endometrial stripe is within normal limits. There is no evidence of an intraut; erine gestation. The right ovary measures 2.6 x 1.5 x 2.1 cm. There is a right ovarian cyst measuring; 1.5 cm. However, there is also a hyperechoic mass in the right adnexa measuring 1.4 x 1.1 x 1.1 cm.; The left ovary measures 2.9 x 1.1 x 2.6 cm. No adnexal masses are seen. Color Doppler flow is seen wi; thin both ovaries. There is no evidence of free fluid.; Impression:; 1. No evidence of an intrauterine gestation.; 2. Hyperechoic mass in the right adnexa. A ectopic at the site cannot be excluded, although; there is no discrete evidence of the pole. Follow-up with serial serum beta hCG levels would b; e helpful for further evaluation.; 3. Simple right ovarian cyst, likely a corpus luteum cyst.; ; Outcome: 22:07 Discharge ordered by Provider. mo1 22:13 Discharge Assessment: Patient awake, alert and oriented x 3. No cognitive and/or jmb functional deficits noted. Patient verbalized understanding of disposition instructions. Patient awake and alert. obeys commands, Oriented to person, place and time. Patient verbalized understanding of disposition instructions. Patient has no functional deficits. patient administered narcotics - no. The following High Risk Discharge criteria are identified: None. Discharged to home ambulatory, with significant other. Condition: stable. Discharge instructions given to patient, Instructed on discharge instructions, follow up and referral plans. medication usage, Demonstrated understanding of instructions, medications, Pt was receptive of discharge instructions/ teaching. Prescriptions given X 1. Ultrasound Study completed. Property sent home with patient. 22:15 Patient left the ED. b Signatures: Dispatcher [facility] Terry AguilarRN RN ms2 Paulo Rosas, RN RN cz Dedrick, Divine, Reg Reg gb Sandra,Cassandra,RN RN rs3 Heaven Julio,BLADE BENDER FURNACE TENDER BLADE BENDER FURNACE TENDER cp1 Mitra Mancini, AEROLOGIST AEROLOGIST ct3 Tom Jansen PA PA mo1 Barbara Molina, AEROLOGIST AEROLOGIST elp Cooper Shipley,JAMI RN saqibb Matthew, Shari 5 Chart Complete MTDD
--- NOTE | 2016-07-27 20:07 | EDDOCDS ---
Physician Documentation [facility] Name: Fiona Spangler Age: 26 yrs Sex: Female : 1990 Arrival Date: 07/23/2016 Time: 18:12 Bed I Private MD: Unknown, Family Dr Disposition: 07/23/16 22:07 Discharged to Home/Self Care. Impression: Spontaneous . - Condition is Stable. - Discharge Instructions: Incomplete Miscarriage, Miscarriage. - Prescriptions for Percocet 5- 325 mg Oral Tablet - take 1 tablet by ORAL route every 6 hours As needed MDD: 4 tabs; 20 tablet. - Medication Reconciliation, Local Pharmacy Hours form. - Follow up: Loretta Arriola CNM; When: Call to arrange an appointment; Reason: Recheck today's complaints, Continuance of care. - Problem is new. - Symptoms are unchanged. Historical: - Allergies: no known allergies; - Home Meds: 1. multivitamin Oral cap 1 tablet daily - PMHx: none; - PSHx: ; - Social history: Smoking status: Patient states was never smoker of tobacco. No barriers to communication noted, The patient speaks fluent Haitian. - Family history: Not pertinent. - : The pt / caregiver states he / she is not on anticoagulants. Home medication list is obtained from the patient. - Exposure Risk Screening:: None identified. 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 6 in. (167.64 cm) (R); Pain 5/10; 18:25 BP 118 / 82 RA Sitting (man/reg); rs3 22:13 BP 120 / 80; Pulse 72; Resp 18; Temp 99.2(O); Pulse Ox 100% on R/A; Pain 0/10; jmb 18:14 Body Mass Index 25.82 (72.57 kg, 167.64 cm) elp MDM: 20:13 US 1st trimester Ordered. EDMS 20:13 Acetaminophen Tablet 975 mg PO once ordered. mo1 20:13 Complete Blood Count Ordered. EDMS 20:13 Hcg, Serum Quantitative Ordered. EDMS 20:14 Type & Screen Ordered. EDMS : [facility] Payment Agreement was scanned into [employer] and attached to record. jp5 : Financial registration complete. jp5 21:02 Hcg, Serum Quantitative Reviewed. mo1 21:02 Complete Blood Count Reviewed. mo1 21:26 TRANSVAGINAL US Ordered. EDMS 21:32 ANTIBODY IDENTIFICATION Ordered. EDMS 07/24 12:46 T-Sheet-- Draft Copy was scanned into [employer] and attached to record. gb 12:47 Radiology Report was scanned into [employer] and attached to record. gb 07/27 20:03 Type & Screen Reviewed. ml 20:03 ANTIBODY IDENTIFICATION Reviewed. ml 20:03 US 1st trimester Reviewed. ml Administered Medications: 07/23 20:21 Drug: Acetaminophen 975 mg [acetaminophen 325 mg tablet (3 tabs)] Route: PO; ms2 Addendum: 07/27/2016 20:04 Radiology Callback: Radiology results faxed to primary care physician/provider. loretta arriola faxed formal report of pelvic us for fu mlg. Signatures: Dispatcher [employer] EDPR Shantel Nye MD MD ml Divine Tse, Reg Reg Cassandra Crouch,RN RN rs3 Tom Jansen PA PA mo1 Cooper Shipley RN RN jmb Price, Jennalee jp5 Terry Aguilar RN ms2 The chart was reviewed and I authenticate all verbal orders and agree with the evaluation and treatment provided.Attachments: 07/23 20: [facility] Payment Agreement 5 07/24 12:46 T-Sheet-- Draft Copy gb Chart Complete MTDD
--- NOTE | 2016-07-27 20:07 | EDDOCDS ---
Physician Documentation [facility] Name: Fiona Spangler Age: 26 yrs Sex: Female : 1990 Arrival Date: 07/23/2016 Time: 18:12 Bed I Private MD: Unknown, Family Dr Disposition: 07/23/16 22:07 Discharged to Home/Self Care. Impression: Spontaneous . - Condition is Stable. - Discharge Instructions: Incomplete Miscarriage, Miscarriage. - Prescriptions for Percocet 5- 325 mg Oral Tablet - take 1 tablet by ORAL route every 6 hours As needed MDD: 4 tabs; 20 tablet. - Medication Reconciliation, Local Pharmacy Hours form. - Follow up: Loretta Arriola CNM; When: Call to arrange an appointment; Reason: Recheck today's complaints, Continuance of care. - Problem is new. - Symptoms are unchanged. Historical: - Allergies: no known allergies; - Home Meds: 1. multivitamin Oral cap 1 tablet daily - PMHx: none; - PSHx: ; - Social history: Smoking status: Patient states was never smoker of tobacco. No barriers to communication noted, The patient speaks fluent [place]. - Family history: Not pertinent. - : The pt / caregiver states he / she is not on anticoagulants. Home medication list is obtained from the patient. - Exposure Risk Screening:: None identified. 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 6 in. (167.64 cm) (R); Pain 5/10; 18:25 BP 118 / 82 RA Sitting (man/reg); rs3 22:13 BP 120 / 80; Pulse 72; Resp 18; Temp 99.2(O); Pulse Ox 100% on R/A; Pain 0/10; jmb 18:14 Body Mass Index 25.82 (72.57 kg, 167.64 cm) elp MDM: 20:13 US 1st trimester Ordered. EDMS 20:13 Acetaminophen Tablet 975 mg PO once ordered. mo1 20:13 Complete Blood Count Ordered. EDMS 20:13 Hcg, Serum Quantitative Ordered. EDMS 20:14 Type & Screen Ordered. EDMS : [facility] [place] [place] Payment Agreement was scanned into [employer] and attached to record. jp5 : Financial registration complete. jp5 21:02 Hcg, Serum Quantitative Reviewed. mo1 21:02 Complete Blood Count Reviewed. mo1 21:26 TRANSVAGINAL US Ordered. EDMS 21:32 ANTIBODY IDENTIFICATION Ordered. EDMS 07/24 12:46 T-Sheet-- Draft Copy was scanned into [employer] and attached to record. gb 12:47 Radiology Report was scanned into [employer] and attached to record. gb 07/27 20:03 Type & Screen Reviewed. ml 20:03 ANTIBODY IDENTIFICATION Reviewed. ml 20:03 US 1st trimester Reviewed. ml Administered Medications: 07/23 20:21 Drug: Acetaminophen 975 mg [acetaminophen 325 mg tablet (3 tabs)] Route: PO; ms2 Addendum: 07/27/2016 20:04 Radiology Callback: Radiology results faxed to primary care physician/provider. loretta arriola faxed formal report of pelvic us for fu mlg. Signatures: Dispatcher [employer] EDME Shantel Nye MD MD ml Divine Tse, Reg Reg Cassandra Crouch,RN RN rs3 Tom Jansen PA PA mo1 Cooper Shipley RN RN jmb Price, Jennalee jp5 Terry Aguilar RN ms2 The chart was reviewed and I authenticate all verbal orders and agree with the evaluation and treatment provided.Attachments: 07/23 20: [facility] [place] [place] Payment Agreement 5 07/24 12:46 T-Sheet-- Draft Copy gb Chart Complete MTDD
== END 2016-07-23 22:15 | disposition home or self-care (01) ==
LOC: M ED 18:12
DX: O02.1 Missed abortion (principal); Z3A.01 Less than 8 weeks gestation of pregnancy

== ENCOUNTER → 2016-10-09 | Outpatient (CLI) | payer OTHER | LOC: M LAB 10:41 | PROVIDERS: ATTEND Nurse Practitioner Women's Health | DX: Z87.59 Personal history of other complications of pregnancy, childbirth and the puerperium (principal) ==

== ENCOUNTER 2017-06-03 17:27 | Emergency (ER) | payer OTHER ==
[~2017-06-03] VITALS: Ht 167.6 cm; Wt 88.6 kg
[2017-06-03] MEDS ORDERED: IBUP80TA PO (17:44)
[2017-06-03] MEDS ORDERED: OXYC1TAB23 PO (17:44)
[2017-06-03] MEDS ORDERED: ACETAMINOPHEN TAB 650MG DOSE (2X325MG) PO ONE (19:00)
[2017-06-03] MEDS ORDERED: NS 1,000 ML IV ONE ×2 (19:00→19:15)
[2017-06-03] MEDS ORDERED: IBUPROFEN 800 MG TAB PO ONE (19:00)
--- NOTE | 2017-06-03 19:40 | REP ---
Chest two views HISTORY: Cough Comparison: None The lungs are clear. The heart is normal in size. The pulmonary vasculature is normal in appearance. The bony structure is intact. IMPRESSION: No acute disease. Signed by Vini Atkins MD 06/03/2017 07:31 P
[2017-06-03 19:56] LABS: BASO % 0.1 % (0.0-1.0); EOS # 0.1 10^3/uL (0.0-0.50); EOS % 0.5 % (0.0-3.0); IMMATURE GRANULOCYTE % 0.4 % (0-0); LYMPH # 0.7 10^3/uL (1.5-6.5); LYMPH % 5.1 % (24.0-44.0); MEAN CORPUSCULAR HEMOGLOBIN 28.5 pg (27.0-33.0); MEAN CORPUSCULAR HGB CONC 32.6 g/dl (32.0-36.5); MEAN CORPUSCULAR VOLUME 87.3 fl (80.0-96.0); MONO # 0.8 10^3/uL (0.0-0.8); NEUTROPHILS # 11.6 10^3/uL (1.8-7.7); NEUTROPHILS % 87.9 % (36.0-66.0); PLATELET COUNT, AUTOMATED 207 10^3/uL (150-450); RED CELL DISTRIBUTION WIDTH 13.5 % (11.5-14.5); WHITE BLOOD COUNT 13.2 10^3/uL (4.0-10.0)
--- NOTE | 2017-06-03 20:00 | REPUSA ---
CT of the abdomen and pelvis without contrast Clinical statement: Pain. Technique: Multiple axial CT images were obtained from the base of the lungs to the floor of the pelv is utilizing 5 mm axial slices without administration of contrast. Coronal and sagittal reconstructio ns were also obtained. No comparison is available. Findings: Chest: There is infiltrate in the left lower lobe. Abdomen: The kidneys are normal in size bilaterally. There is no evidence of hydronephrosis or nephro lithiasis. The liver, spleen, pancreas, gallbladder and adrenal glands are unremarkable. The aorta de monstrates normal caliber and contour. There is no abdominal lymphadenopathy or ascites. Pelvis: Moderate amount of stool fills the colon. The bowel is otherwise unremarkable, with no obstru ctive or inflammatory changes. The urinary bladder is catheterized, and distended. There is no pelvic lymphadenopathy or ascites. The uterus is enlarged. Bones: There are no suspicious osseous abnormalities seen. Impression: 1. No evidence of hydronephrosis or nephrolithiasis. 2. Moderate constipation. No obstructive or inflammatory bowel changes. 3. Small left lower lobe infiltrate. 4. Enlarged post-gravid uterus.
[2017-06-03 20:09] LABS: ANION GAP 9 MEQ/L (8-16); BLOOD UREA NITROGEN 13 MG/DL (7-18); CALCIUM LEVEL 8.9 MG/DL (8.5-10.1); CARBON DIOXIDE LEVEL 24 MEQ/L (21-32); CHLORIDE LEVEL 107 MEQ/L (98-107); CREATININE FOR GFR 0.53 MG/DL (0.55-1.02); GLOMERULAR FILTRATION RATE > 60.0 (>60); GLUCOSE, FASTING 93 MG/DL (70-105); POTASSIUM SERUM 3.8 MEQ/L (3.5-5.1); SODIUM LEVEL 140 MEQ/L (136-145)
[2017-06-03 20:29] LABS: ERYTHROCYTE SEDIMENTATION RATE 71 mm/hr (0-20)
[2017-06-03] MEDS ORDERED: AUGMENTIN 875 MG TAB PO ONE (21:30)
[2017-06-03] MEDS ORDERED: CEFTRIAXONE SOD 1 GM in APPROPRIATE DILUENT 1 EA IV ONE (21:30)
[2017-06-03] MEDS ORDERED: AUGM875T28 PO (21:42)
[2017-06-03 22:31] VITALS: BP 129/73
== END 2017-06-03 22:34 | disposition home or self-care (01) ==
LOC: M ED 17:27
DX: Z39.0 Encounter for care and examination of mother immediately after delivery (principal); R33.9 Retention of urine, unspecified; Z98.890 Other specified postprocedural states; J18.9 Pneumonia, unspecified organism; Z96.0 Presence of urogenital implants; K59.00 Constipation, unspecified

== ENCOUNTER 2017-09-11 17:06 | Emergency (ER) | payer OTHER ==
[2017-09-11] MEDS: NS 500 ML IV (19:00)
[2017-09-11 19:14] LABS: BASO # 0.1 10^3/uL (0.0-0.2); BASO % 0.6 % (0.0-1.0); EOS # 0.1 10^3/uL (0.0-0.50); EOS % 1.3 % (0.0-3.0); HEMATOCRIT 38.1 % (36.0-47.0); HEMOGLOBIN 12.9 g/dl (12.0-16.0); IMMATURE GRANULOCYTE % 0.3 % (0-3.0); LYMPH # 2.5 10^3/uL (1.5-6.5); LYMPH % 31.7 % (24.0-44.0); MEAN CORPUSCULAR HEMOGLOBIN 28.9 pg (27.0-33.0); MEAN CORPUSCULAR HGB CONC 33.9 g/dl (32.0-36.5); MEAN CORPUSCULAR VOLUME 85.4 fl (80.0-96.0); MONO # 0.6 10^3/uL (0.0-0.8); MONO % 7.6 % (0.0-5.0); NEUTROPHILS # 4.6 10^3/uL (1.8-7.7); NEUTROPHILS % 58.5 % (36.0-66.0); PLATELET COUNT, AUTOMATED 254 10^3/uL (150-450); RED BLOOD COUNT 4.46 10^6/uL (4.00-5.40); RED CELL DISTRIBUTION WIDTH 12.5 % (11.5-14.5); WHITE BLOOD COUNT 7.9 10^3/uL (4.0-10.0)
[2017-09-11 19:17] LABS: INR 0.94; PARTIAL THROMBOPLASTIN TIME 32.3 SECONDS (26.8-37.9); PROTHROMBIN TIME 12.7 SECONDS (12.4-14.5)
[2017-09-11 19:21] LABS: CONTROL LINE HCG INT CTR LINE PRESENT; HCG, SERUM QUALITATIVE NEGATIVE (NEGATIVE)
[2017-09-11 19:22] LABS: D-DIMER QUANT < 270.0 ng/ml (<500)
[2017-09-11 19:31] LABS: ALBUMIN/GLOBULIN RATIO 1.18 (1.00-1.93); ALT/SGPT 40 U/L (12-78); ANION GAP 6 MEQ/L (8-16); AST/SGOT 21 U/L (7-37); BILIRUBIN,DIRECT 0.2 MG/DL (0.0-0.2); BLOOD UREA NITROGEN 21 MG/DL (7-18); C REACTIVE PROTEIN QUANTITATIV < 0.30 MG/DL (0.00-0.30); CALCIUM LEVEL 9.1 MG/DL (8.5-10.1); CARBON DIOXIDE LEVEL 29 MEQ/L (21-32); CHLORIDE LEVEL 106 MEQ/L (98-107); CREATININE FOR GFR 0.99 MG/DL (0.55-1.30); GLOMERULAR FILTRATION RATE > 60.0 (>60); GLUCOSE, FASTING 80 MG/DL (70-100); LIPASE 106 U/L (73-393); SODIUM LEVEL 141 MEQ/L (136-145); TOTAL PROTEIN 7.4 GM/DL (6.4-8.2); TROPONIN I < 0.02 NG/ML (< 0.10)
[2017-09-11 19:36] LABS: ALKALINE PHOSPHATASE 80 U/L (45-117); CPK CREATINE PHOSPHOKINASE 59 U/L (26-192); FREE T4 0.83 NG/DL (0.76-1.46); MB/CK RELATIVE INDEX 1.69 (< OR =4); NT-PRO BNP 28 PG/ML (<125)
[2017-09-11] MEDS ORDERED: NORCO, ANEXSIA 5/325MG TABLET (HYDROcodone/ACETAMINOPHEN) PO (21:30)
[2017-09-11] MEDS ORDERED: OMEPRAZOLE 20 MG CAP PO (21:30)
[2017-09-11] MEDS ORDERED: GI COCKTAIL 50ML BTL(HYOSCYAMINE/MAALOX/LIDOCAINE VISCOUS)(1:3:1) PO (21:30)
== END 2017-09-11 22:11 | disposition home or self-care (01) ==
LOC: M ED 17:06
DX: R07.89 Other chest pain (principal); I45.19 Other right bundle-branch block
CPT/HCPCS: 71046

== ENCOUNTER → 2017-10-30 | Outpatient (REF) | payer OTHER ==
[2017-10-30 19:23] LABS: APPEARANCE, URINE MANUAL CLOUDY (CLEAR); COLOR, URINE MANUAL YELLOW (YELLOW)
[2017-10-30 19:24] LABS: BILIRUBIN, URINE MANUAL NEGATIVE (NEGATIVE); BLOOD URINE MANUAL POSITIVE (NEGATIVE); GLUCOSE, URINE (UA) MANUAL NEGATIVE (NEGATIVE); KETONE, URINE MANUAL NEGATIVE (NEGATIVE); LEUKOCYTE ESTERASE, URINE MAN POSITIVE (NEGATIVE); MICROSCOPIC INDICATED? MAN YES (NO); NITRITE, URINE MANUAL POSITIVE (NEGATIVE); PH,URINE MAN 5.5 UNITS (5.0 - 7.0); PROTEIN, URINE MANUAL 1+ mg/dL (NEGATIVE); UROBILINOGEN, URINE MANUAL NORMAL (NORMAL)
[2017-10-30 19:26] LABS: BACTERIA, URINE LARGE AMOUNT; HYALINE CAST, URINE NONE SEEN /lpf (0-1); MICROSCOPIC EXAM PERFORMED; MUCUS, URINE SMALL AMOUNT (NEGATIVE); SQUAMOUS EPITHELIAL CELL URINE SMALL AMOUNT /hpf (SMALL AMT)
== END ==
LOC: M LAB REF 09:38
DX: N39.0 Urinary tract infection, site not specified (principal)
CPT/HCPCS: 81000

== ENCOUNTER 2018-05-29 22:58 | Emergency (ER) | payer OTHER ==
[2018-05-30] MEDS: NS 1,000 ML IV ×2 (00:11)
[2018-05-30] MEDS: ONDANSETRON 4MG/2ML VIAL (J2405) IV ×2 (00:12)
[2018-05-30 00:16] LABS: BASO # 0.1 10^3/uL (0.0-0.2); BASO % 0.4 % (0.0-1.0); EOS % 0.1 % (0.0-3.0); HEMATOCRIT 42.7 % (36.0-47.0); HEMOGLOBIN 14.2 g/dl (12.0-15.5); IMMATURE GRANULOCYTE % 0.4 % (0-3.0); LYMPH # 1.8 10^3/uL (1.5-6.5); LYMPH % 15.4 % (24.0-44.0); MEAN CORPUSCULAR HEMOGLOBIN 29.4 pg (27.0-33.0); MEAN CORPUSCULAR HGB CONC 33.3 g/dl (32.0-36.5); MEAN CORPUSCULAR VOLUME 88.4 fl (80.0-96.0); MONO # 0.8 10^3/uL (0.0-0.8); MONO % 7.1 % (0.0-5.0); NEUTROPHILS # 9.1 10^3/uL (1.8-7.7); NEUTROPHILS % 76.6 % (36.0-66.0); PLATELET COUNT, AUTOMATED 289 10^3/uL (150-450); RED BLOOD COUNT 4.83 10^6/uL (4.00-5.40); RED CELL DISTRIBUTION WIDTH 11.8 % (11.5-14.5); WHITE BLOOD COUNT 11.8 10^3/uL (4.0-10.0)
[2018-05-30 00:27] LABS: KETONE, URINE AUTO RFX 1+ mg/dL (NEGATIVE); LEUKOCYTE ESTERASE UR AUTO RFX NEGATIVE (NEGATIVE); MUCUS, URINE RFX LARGE (NEGATIVE); NITRITE, URINE AUTO RFX NEGATIVE (NEGATIVE); RBC, URINE AUTO RFX 1 /HPF (0-3); SPECIFIC GRAVITY UR AUTO RFX 1.029 (1.002-1.035); SQUAM EPITHELIAL CELL UR AURFX 27 /HPF (0-6); WBC, URINE AUTO RFX 2 /HPF (0-3)
[2018-05-30 00:42] LABS: ALBUMIN 4.1 GM/DL (3.2-5.2); ALBUMIN/GLOBULIN RATIO 1.08 (1.00-1.93); ALKALINE PHOSPHATASE 92 U/L (45-117); ALT/SGPT 46 U/L (12-78); ANION GAP 8 MEQ/L (8-16); AST/SGOT 22 U/L (7-37); BILIRUBIN,DIRECT 0.3 MG/DL (0.0-0.2); BILIRUBIN,TOTAL 1.8 MG/DL (0.2-1.0); BLOOD UREA NITROGEN 28 MG/DL (7-18); CALCIUM LEVEL 9.4 MG/DL (8.5-10.1); CARBON DIOXIDE LEVEL 27 MEQ/L (21-32); CHLORIDE LEVEL 106 MEQ/L (98-107); CREATININE FOR GFR 0.76 MG/DL (0.55-1.30); GLOMERULAR FILTRATION RATE > 60.0 (>60); GLUCOSE, FASTING 121 MG/DL (70-100); HCG, SERUM QUANTITATIVE < 1.0 MIU/ML; LIPASE 54 U/L (73-393); POTASSIUM SERUM 4.1 MEQ/L (3.5-5.1); SODIUM LEVEL 141 MEQ/L (136-145); TOTAL PROTEIN 7.9 GM/DL (6.4-8.2)
[2018-05-30] MEDS: GI COCKTAIL 50ML BTL(HYOSCYAMINE/MAALOX/LIDOCAINE VISCOUS)(1:3:1) PO ×2 (01:00)
[2018-05-30 01:48] LABS: INFLUENZA A AMPLIFICATION NEGATIVE (NEGATIVE); INFLUENZA B AMPLIFICATION NEGATIVE (NEGATIVE)
== END 2018-05-30 02:11 | disposition home or self-care (01) ==
LOC: M ED 22:58
DX: R10.30 Lower abdominal pain, unspecified (principal); R11.2 Nausea with vomiting, unspecified
CPT/HCPCS: J2405

== ENCOUNTER 2018-09-10 08:25 | Emergency (ER) | payer OTHER ==
[~2018-09-10] VITALS: Ht 167.6 cm; Wt 86.4 kg
[~2018-09-10 08:25] MED LIST changes: +AUGM875T28 PO; +HYDR-3715 PO; +IBUP80TA PO; -NORCOTAB PO; +OXYC1TAB23 PO; +PRIL20CA9 PO; +RANI15TA PO; +ZOFR4TAB14 PO
[2018-09-10 08:26] VITALS: BP 137/71
[2018-09-10 08:55] LABS: URINE PREG TEST NEGATIVE (NEGATIVE)
[2018-09-10] MEDS ORDERED: ONDANSETRON 4 MG ORAL DISINTEGRATING TAB (Q0162 PER 1MG) PO ONE (09:45)
[2018-09-10] MEDS ORDERED: BACT800T5 PO (09:52)
[2018-09-10] MEDS ORDERED: ONDA4TAB6 PO (09:52)
== END 2018-09-10 09:56 | disposition home or self-care (01) ==
LOC: M ED 08:25
DX: N30.90 Cystitis, unspecified without hematuria (principal); R11.2 Nausea with vomiting, unspecified; Z87.440 Personal history of urinary (tract) infections
CPT/HCPCS: 81001; 81025; 84703; 87086; 99283; Q0162

== ENCOUNTER → 2019-03-26 | Outpatient (REF) | payer OTHER ==
[~2019-03-26] MED LIST changes: +BACT800T5 PO; +ONDA4TAB6 PO
== END ==
LOC: M SFHCPLAZ 16:46
PROVIDERS: ATTEND Nurse Practitioner Family
DX: R19.7 Diarrhea, unspecified (principal)

== ENCOUNTER 2019-04-01 23:01 | Emergency (ER) | payer OTHER ==
[~2019-04-01] VITALS: Ht 170.2 cm; Wt 86.4 kg
[2019-04-01] MEDS ORDERED: NS 1,000 ML IV ONE (23:45)
[2019-04-01 23:49] LABS: BASO % 0.5 % (0.0-1.0); EOS # 0.1 10^3/uL (0.0-0.5); LYMPH # 2.8 10^3/uL (1.5-5.0); LYMPH % 34.3 % (24.0-44.0); MEAN CORPUSCULAR HEMOGLOBIN 29.7 pg (27.0-33.0); MEAN CORPUSCULAR HGB CONC 34.2 g/dl (32.0-36.5); MONO # 0.7 10^3/uL (0.0-0.8); MONO % 8.9 % (0.0-5.0); NEUTROPHILS # 4.6 10^3/uL (1.5-8.5); NEUTROPHILS % 55.2 % (36.0-66.0); PLATELET COUNT, AUTOMATED 238 10^3/uL (150-450); RED BLOOD COUNT 4.37 10^6/uL (4.00-5.40); WHITE BLOOD COUNT 8.2 10^3/uL (4.0-10.0)
[2019-04-02 00:09] LABS: ALBUMIN 3.9 GM/DL (3.2-5.2); BILIRUBIN,DIRECT 0.2 MG/DL (0.0-0.2); BILIRUBIN,TOTAL 0.9 MG/DL (0.2-1.0); TOTAL PROTEIN 7.3 GM/DL (6.4-8.2)
[2019-04-02] MEDS ORDERED: BACT800T5 PO (02:08)
[2019-04-02 02:15] VITALS: BP 120/72
--- NOTE | 2019-04-02 08:05 | REPVR ---
PROCEDURE INFORMATION: Exam: US Pelvis Complete, Transabdominal Exam date and time: 04/02/2019 12:26 AM Clinical history: 29 years old, female; Pelvic pain; Additional info: Rlq pain/missed menses TECHNIQUE: Imaging protocol: Real-time transabdominal pelvic ultrasound with image documentation. Complete exam. COMPARISON: US PELVIC NON-OB COMPLETE 07/19/2016 11:27 PM FINDINGS: Uterus/cervix: 1.3 cm thick endometrium. 9.3 x 4.6 x 5 cm uterus without masses. Right adnexa: 3 x 2.2 x 2.3 cm right ovary with normal follicular architecture and blood flow. Involuting hypoechoic small cyst measuring 11 mm within the right ovary, physiologic. Left adnexa: 2.4 x 1.5 x 2.6 cm left ovary with normal follicular architecture and blood flow. Free fluid: None. Bladder: Unremarkable bladder measuring 4.5 x 2.5 x 5.4 cm. IMPRESSION: 1. No intra-or extrauterine gestation. 2. Secretory phase uterus with 1.3 cm thick endometrium. Electronically signed by: James Preston On 04/02/2019 01:09:18 AM
== END 2019-04-02 02:17 | disposition home or self-care (01) ==
LOC: M ED 23:01
DX: N83.291 Other ovarian cyst, right side (principal); N39.0 Urinary tract infection, site not specified; E66.9 Obesity, unspecified

== ENCOUNTER → 2023-07-22 | Outpatient (REF) | payer OTHER ==
[2023-07-22 18:03] LABS: APPEARANCE, URINE CLOUDY (CLEAR); BACTERIA, URINE AUTO NEGATIVE (NEGATIVE); BILIRUBIN, URINE AUTO NEGATIVE (NEGATIVE); BLOOD, URINE BLOOD 3+ (NEGATIVE); COLOR, URINE YELLOW (YELLOW); GLUCOSE, URINE (UA) AUTO NEGATIVE (NEGATIVE); KETONE, URINE AUTO NEGATIVE (NEGATIVE); LEUKOCYTE ESTERASE, URINE AUTO 3+ (NEGATIVE); MUCUS, URINE SMALL (NEGATIVE); NITRITE, URINE AUTO POSITIVE (NEGATIVE); PROTEIN, URINE AUTO 2+ mg/dL (NEGATIVE); RBC, URINE AUTO 50 /HPF (0-3); SPECIFIC GRAVITY URINE AUTO 1.018 (1.002-1.035); SQUAMOUS EPITHELIAL CELL UR AU 7 /HPF (0-6); UROBILINOGEN, URINE AUTO 0.2 mg/dL (0.0-2.0); WBC, URINE AUTO TNTC /HPF (0-3)
== END ==
LOC: M LAB REF 16:35
PROVIDERS: ATTEND Physician Assistant
DX: N39.0 Urinary tract infection, site not specified (principal)

== ENCOUNTER → 2023-08-17 | Outpatient (REF) | payer OTHER ==
[~2023-08-17] MED LIST changes: +MACR100C43 PO
[2023-08-17 14:00] LABS: Trichomonas vaginalis (AMP) NOT DETECTED (NEGATIVE)
[2023-08-17 14:24] LABS: GC DNA AMPLIFICATION NEGATIVE (NEGATIVE)
== END ==
LOC: M LAB REF 11:43
PROVIDERS: ATTEND Student in an Organized Health Care Education/Training Program
DX: R30.0 Dysuria (principal)

== ENCOUNTER 2023-08-19 21:35 | Emergency (ER) | payer OTHER ==
[~2023-08-19] VITALS: Ht 167.6 cm; Wt 89.4 kg
[~2023-08-19 21:35] MED LIST changes: -MACR100C43 PO
[2023-08-19] MEDS ORDERED: MACR100C43 PO (21:42)
[2023-08-19 22:28] LABS: BASO % 0.5 % (0.0-1.0); HEMATOCRIT 40.1 % (36.0-47.0); HEMOGLOBIN 13.4 g/dl (12.0-15.5); LYMPH # 1.2 10^3/uL (1.5-5.0); LYMPH % 13.9 % (24.0-44.0); MEAN CORPUSCULAR HEMOGLOBIN 29.5 pg (27.0-33.0); MEAN CORPUSCULAR HGB CONC 33.4 g/dl (32.0-36.5); MEAN CORPUSCULAR VOLUME 88.3 fl (80.0-96.0); MONO # 0.7 10^3/uL (0.0-0.8); MONO % 8.5 % (2.0-8.0); NEUTROPHILS # 6.4 10^3/uL (1.5-8.5); NEUTROPHILS % 76.9 % (36.0-66.0); PLATELET COUNT, AUTOMATED 293 10^3/uL (150-450); RED BLOOD COUNT 4.54 10^6/uL (4.00-5.40); WHITE BLOOD COUNT 8.3 10^3/uL (4.0-10.0)
[2023-08-19 22:59] LABS: LIPASE 25 U/L (12-53)
[2023-08-19 23:02] LABS: ALKALINE PHOSPHATASE 219 U/L (46-116); ALT/SGPT 88 U/L (7.0-40); AST/SGOT 26 U/L (<34); BILIRUBIN,DIRECT 0.4 MG/DL (<0.4); BILIRUBIN,TOTAL 1.5 MG/DL (0.3-1.2); BLOOD UREA NITROGEN 26 MG/DL (9-23); CARBON DIOXIDE LEVEL 22 MMOL/L (20-31); CHLORIDE LEVEL 105 MMOL/L (98-107); CREATININE FOR GFR 0.62 MG/DL (0.55-1.30); GLOMERULAR FILTRATION RATE > 60.0 (>60); GLUCOSE, FASTING 144 MG/DL (60-100); POTASSIUM SERUM 4.4 MMOL/L (3.5-5.1); SODIUM LEVEL 137 MMOL/L (136-145); TOTAL PROTEIN 8.1 G/DL (5.7-8.2)
[2023-08-19 23:08] LABS: ALBUMIN 4.1 G/DL (3.2-5.2)
[2023-08-19 23:16] LABS: HCG, SERUM QUALITATIVE NEGATIVE (NEGATIVE)
[2023-08-20] MEDS ORDERED: ONDA4TAB6 PO (02:03)
[2023-08-20] MEDS: NS 1,000 ML IV ONE (02:08)
[2023-08-20] MEDS: ONDANSETRON 4MG 2ML VIAL IV ONE (02:08)
[2023-08-20 03:33] VITALS: BP 129/79; TEMP 98.3; O2SAT 97
== END 2023-08-20 03:35 | disposition home or self-care (01) ==
LOC: M ED 21:35
DX: R11.2 Nausea with vomiting, unspecified (principal); F10.10 Alcohol abuse, uncomplicated; Z87.891 Personal history of nicotine dependence; Z79.83 Long term (current) use of bisphosphonates; Z79.899 Other long term (current) drug therapy
CPT/HCPCS: 80048; 80076; 83690; 84703; 85025; 96361; 96374; 99284; J2405